=== PATIENT | male | born 2000 ===

== ENCOUNTER 2023-11-11 12:25 | Inpatient (IN) | payer BC, SELFPAY ==
--- NOTE | 2023-11-11 12:35 | ED_ITS ---
HPI - General Adult General Chief complaint: Behavioral Concerns Stated complaint: Section 12 Time Seen by Provider: 11/11/23 12:35 Source: patient and EMS Mode of arrival: EMS Limitations: no limitations History of Present Illness ED Provider: Stephanie Lees PA-C HPI narrative: Patient is a 22 year old assigned male at with no reported medical history presenting to the emergency department today with rodrigo. Patient refuses to answer questions. Appears to be answering to internal stimuli. Related Data Home Medications ?Medication ?Instructions ?Recorded ?Confirmed cetirizine 10 mg tablet 10 mg PO DAILY 11/11/23 11/11/23 chlorpromazine 100 mg tablet 100 mg PO BEDTIME 11/11/23 11/11/23 lithium carbonate 300 mg tablet mg PO 11/11/23 lorazepam 1 mg tablet 1 mg PO DAILY PRN anxiety 11/11/23 11/11/23 lurasidone 40 mg tablet 40 mg PO DAILY 11/11/23 11/11/23 olanzapine 5 mg tablet 5 mg PO BEDTIME 11/11/23 11/11/23 Allergies Allergy/AdvReac Type Severity Reaction Status Date / Time No Known Allergies Allergy Verified 11/11/23 12:50 Review of Systems 2 Review of Systems: Yes Other (patient refused to answer questions) Psychiatric: Psychiatric: Reports auditory hallucinations PMFSH Past Medical History Attestation statement: The following information was validated with the patient. Source: old records reviewed and nursing notes reviewed Social History Social History Advance Directives: No Advance Directives Information Provided: No Do you have a plan to hurt others: No Plan Physical Exam ED Vital Signs: BMI result Body Mass Index 33.9 Const General: cooperative, no acute distress, alert and awake Nutritional Appearance: well nourished Orientation/consciousness: patient oriented x3 Limitations: no limitations HENMT Head: Yes normal to inspection and Yes atraumatic Ears: hearing grossly normal bilaterally and external ears normal General nose exam: Normal external nose present, no nasal discharge noted and no epistaxis Face and sinus: Yes normal facial exam, No abrasion and No laceration Mouth: Normal oral and palatal mucosa present, no drooling and no muffled voice Eyes General: appearance normal, both eyes and all related structures Periorbital: periorbital findings normal Eyelids: Yes eyelids normal Conjunctivae: conjunctivae normal Pupils: Equal, round and reactive pupils present EOM: EOMs intact bilaterally Neck Neck: Yes normal visual inspection, Yes full ROM and Yes no lymphadenopathy Chest Chest palpation & inspection: normal inspection of the chest Resp Effort & Inspection: normal respiratory effort and able to speak in complete sentences GI Inspection: Yes normal to inspection Neuro General: patient oriented x3 and moves all extremities Cranial nerves: Yes Equal, round and reactive pupils present Cognition (Neuro): normal cognition Extrem General: Yes normal to inspection, Yes full ROM and Yes capillary refill normal Psych Speech and movement: Pressured speech present Affect: Labile affect present Attitude: Guarded attititude/behavior present Thought process: Flight of ideas present Thought content: delusions Medical Decision Making Medical Decision Making MDM Narrative: Patient is a 22 year old assigned male at with no reported medical history presenting to the emergency department today with acute rodrigo. Patient's physical exam was as noted in the physical exam portion of this note. Patient's blood work was unremarkable. Patient was evaluated by the CARE team who recommended in patient level of psychiatric care. I explained my physical exam findings as well as all test results to the patient. I answered all questions asked by the patient. Patient remains in physician observation pending inpatient psychiatric admission or transfer to a psychiatric facility. Differential Diagnosis Differential Diagnoses: The differential diagnosis associated with the presentation includes Rodrigo Delusions Auditory hallucinations Admission/Observation Consideration of admission/observation: Escalation of care including admission/observation considered Patient to be admitted for psychiatric care Consult Healthcare Provider Management of the patient was discussed with: Behavioral Health Provider (spoke to the CARE team as noted in the MDM Rationale portion of this note.) Lab Data [facility] Lab Attestation statement: I reviewed the patient's lab results. My interpretation of these results are in the MDM Rationale portion of this note. 11/11/23 12:55 11/11/23 12:55 Labs: Lab Results 11/11/23 11/11/23 Range/Units 12:55 15:08 WBC 4.9 (4.8-10.8) X10*3/uL RBC 4.94 (4.60-5.80) X10*6/uL Hgb 15.4 (14.0-18.0) g/dl Hct 43.8 (42.0-52.0) % MCV 88.7 (80.0-98.0) fL MCH 31.2 (27.0-33.0) pg MCHC 35.2 (31.0-36.0) g/dl RDW 13.2 (11.0-16.0) % Plt Count 259 (160-400) X10*3/uL MPV 9.2 L (9.4-12.4) fL Immature Gran % (Auto) 0.2 (0.0-0.4) % Neut % (Auto) 65.3 (45-73) % Lymph % (Auto) 22.2 (20-40) % [place] % (Auto) 10.1 (2-11) % Eos % (Auto) 1.2 (0-4) % Baso % (Auto) 1.0 (0-2) % Lymph # (Auto) 1.1 L (1.2-4.9) X10*3/uL [place] # (Auto) 0.5 (0.1-1.2) X10*3/uL Eos # (Auto) 0.1 (0.0-0.4) X10*3/uL Baso # (Auto) 0.1 (0.0-0.2) X10*3/uL Abs Immat Gran (auto) 0.01 (0.00-0.03) X10*3/uL Absolute Neuts (auto) 3.2 (2.0-8.3) x10*3/uL Absolute Nucleated RBC 0.000 (0.0-0.012) X10*3/uL Nucleated RBC % (auto) 0.0 (0.0-0.2) /100WBC Sodium 141 (135-145) mmol/L Potassium 3.8 (3.3-5.1) mmol/L Chloride 110 H (96-108) mmol/L Carbon Dioxide 21 L (22-29) mmol/L Anion Gap 14 (12-20) BUN 11 (9-16) mg/dL Creatinine 1.02 (0.5-1.4) mg/dL Estim Creat Clear Calc 150.1 Estimated GFR > 60 Random Glucose 109 (60-115) mg/dL Calcium 10.0 (8.4-10.2) mg/dL Total Bilirubin 0.6 (0.0-1.0) mg/dL AST 30 (5-37) U/L ALT 72 H (0-40) U/L Alkaline Phosphatase 86 (39-117) U/L Total Protein 7.6 (6.5-8.0) g/dL Albumin 4.6 (3.5-5.0) g/dL Urine Color Yellow Urine Appearance Clear Urine pH 6.0 (5.0-9.0) Ur Specific [place] >= 1.030 H (1.005-1.025) Urine Protein 30 (1+) H (Neg-Trace) mg/dL Urine Glucose (UA) Negative (Negative) mg/dL Urine Ketones Trace (Negative) mg/dL Urine Blood Negative (Negative) Urine Nitrite Negative (Negative) Ur Leukocyte Esterase Trace H (Negative) Urine RBC 0-2 (0-2) /HPF Urine WBC 0-5 (0-5) /HPF Ur Squamous Epith Cells 0-2 (0-2) /HPF Urine Bacteria None Seen (None Seen) Hyaline Casts 0-2 (0-2) /LPF Salicylates < 5.0 L (15-30) mg/dL Acetaminophen < 3 (<30) mcg/mL Ethyl Alcohol < 10 mg/dL COVID-19 (TATI) Negative (Negative) COVID-19 Clin Com See Note Independent Historian Clinical information obtained from an independent historian. History obtained from or confirmed by: EMS (EMS provided additional history and confirmed the history provided by the patient.) Critical Care Time Critical Care Time Critical Care Time: Yes Total Critical Care Time: 36 Attestation: I spent 36 minutes of Critical Care Time with this patient. This does not include time spent on separately reported billable procedures. Discharge Plan Discharge Clinical Impression: Auditory hallucination Patient Disposition: Still a Patient Prescriptions: No Action cetirizine 10 mg tablet 10 mg PO DAILY chlorpromazine 100 mg tablet 100 mg PO BEDTIME olanzapine 5 mg tablet 5 mg PO BEDTIME lorazepam 1 mg tablet 1 mg PO DAILY PRN (Reason: anxiety) lithium carbonate 300 mg tablet PO lurasidone 40 mg tablet 40 mg PO DAILY Print Language: Anguillan
[2023-11-11 12:46] VITALS: BMI 33.9
[2023-11-11 13:01] LABS: MANUAL DIFF FLAG NO
--- NOTE | 2023-11-11 13:03 | MHC.CARE ---
[facility] calls with expect for patient and the following information is given: [facility] reports that patient's father brought him to the office. Prior to going to the [facility] office, father drove patient to [facility] in hopes to get patient readmitted. Patient discharged from [facility] 11/09/23. He is described as presenting for crisis evaluation due to verbal and physical aggression and psychotic breaks. Upon arrival to [facility] office, patient did not speak to anyone and stormed out. [facility] states he has a hx of aggression but they are not able to articulate what his aggressive hx looks like/ presents as other than that he is a large [place]. They report that he has a hx of being dx with bipolar d/o and substance induced bipolar. Historically he is medication non compliant. Father thinks he is taking medication currently however. Additionally, patient has been living in a hotel in [place] with his father since d/c from [facility], as he is considered not safe to be home with his mother and younger brother. Family home/ mother and brother are in [place]. Father is reported to be a surgeon working in [employer]/ the [place] and not home often. [facility] reports that a DMH application was started at [facility]. Additional admissions include [facility] Moisejuan danielderek 10/01-10/05. Upon return to the area post [facility] admission he was soon sent to a local ED for crisis assessment and waited in the ED for placement from 10/22-10/25. He was then admitted to [facility] from 10/25-11/08. [facility] is working on the assessment, their disposition/ recommendation is inpatient LOC. They report that patient did not verbally engage at all and the bulk of the information came from patient's father and his discharge paperwork they obtained from [facility].
[2023-11-11 13:05] LABS: Basophils Absolute Auto 0.1 X10*3/uL (0.0-0.2); Eosinophils Absolute Auto 0.1 X10*3/uL (0.0-0.4); Eosinophils Percent Auto 1.2 % (0-4); Hematocrit 43.8 % (42.0-52.0); Hemoglobin 15.4 g/dl (14.0-18.0); Imm Gran Abs Auto 0.01 X10*3/uL (0.00-0.03); Imm Gran Pct Auto 0.2 % (0.0-0.4); Lymphocytes Absolute Auto 1.1 X10*3/uL (1.2-4.9); Lymphocytes Percent Auto 22.2 % (20-40); Mean Corpuscular HGB Conc 35.2 g/dl (31.0-36.0); Mean Corpuscular Hemoglobin 31.2 pg (27.0-33.0); Mean Corpuscular Volume 88.7 fL (80.0-98.0); Mean Platelet Volume 9.2 fL (9.4-12.4); Monocytes Absolute Auto 0.5 X10*3/uL (0.1-1.2); Monocytes Percent Auto 10.1 % (2-11); Neutrophils Absolute Auto 3.2 x10*3/uL (2.0-8.3); Neutrophils Percent Auto 65.3 % (45-73); Platelet Count 259 X10*3/uL (160-400); Red Blood Count 4.94 X10*6/uL (4.60-5.80); Red Cell Distribution Width 13.2 % (11.0-16.0); White Blood Count 4.9 X10*3/uL (4.8-10.8)
[2023-11-11 13:26] LABS: COVID-19 Test Negative (Negative); IDNOW Serial# 08D9AD1C
[2023-11-11 13:28] LABS: Acetaminophen LAB < 3 mcg/mL (<30); Salicylate < 5.0 mg/dL (15-30)
[2023-11-11 13:33] LABS: Alanine Aminotransferase 72 U/L (0-40); Albumin Level 4.6 g/dL (3.5-5.0); Alkaline Phosphatase 86 U/L (39-117); Anion Gap 14 (12-20); Aspartate Amino Transferase 30 U/L (5-37); Bilirubin Total 0.6 mg/dL (0.0-1.0); Blood Urea Nitrogen 11 mg/dL (9-16); Carbon Dioxide 21 mmol/L (22-29); Chloride 110 mmol/L (96-108); Creatinine Clr Calc Pharmacy 150.1; Estimated Glomerular Filt Rate > 60; Ethanol < 10 mg/dL; Glucose Random 109 mg/dL (60-115); Potassium 3.8 mmol/L (3.3-5.1); Sodium 141 mmol/L (135-145); Total Protein 7.6 g/dL (6.5-8.0)
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
[2023-11-11 15:18] LABS: Appearance Urine Clear; Glucose Urine UA Negative (Negative); Leukocyte Esterase Urine Trace (Negative); Nitrite Urine Negative (Negative); Specific Gravity - Urine >= 1.030 (1.005-1.025); UMIC TRIGGER UA YES; Urine Blood Negative (Negative); Urine Ketones Trace mg/dL (Negative); Urine Protein 30 (1+) mg/dL (Neg-Trace)
[2023-11-11 15:21] LABS: Color Urine Yellow
[2023-11-11 15:22] LABS: Bacteria Urine None Seen (None Seen); Hyaline Casts Urine 0-2 /LPF (0-2); RBC Urine 0-2 /HPF (0-2); Squamous Epithelial Cell Urine 0-2 /HPF (0-2); WBC Urine 0-5 /HPF (0-5)
[2023-11-11 15:35] LABS: Amphetamine Screen Urine Not Detected (Not Detect); Barbiturates, Urine Not Detected (Not Detect); Benzodiazepines Screen Urine Not Detected (Not Detect); Buprenorphine Scr Not Detected (Not Detect); Cannabinoid Screen Urine POSITIVE (Not Detect); Cocaine Screen Urine Not Detected (Not Detect); Fentanyl, urine Not Detected (Not Detect); Methadone Screen, Urine Not Detected (Not Detect); Opiate Screen Urine Not Detected (Not Detect); Oxycodone Screen Urine Not Detected (Not Detect); Phencyclidine Screen Urine Not Detected (Not Detect)
[2023-11-11 16:16] VITALS: BP 154/82; PULSE 95; RESP 20; TEMP 36.8; O2SAT 99
--- NOTE | 2023-11-11 16:41 | PHA.MEDREC ---
Addendum entered by Grecia Christianson RPh 11/11/23 16:45: Reviewed by [facility] Original Note: Pharmacy Consult ? Medication Reconciliation Pharmacy has Reviewed the medication reconciliation done by nursing.
[2023-11-11] MEDS: hydrOXYzine HCL 50 MG TABLET PO (17:39)
--- NOTE | 2023-11-11 18:54 | PC.NURSE ---
patient appears to remain resting moderately intrusive, waiting immediately outside the nurses station redirected but consistently seeming interested in staff activities, hanging around with sunglasses on and giggling.
[2023-11-11 20:05] VITALS: BMI 36.7
[2023-11-11 20:32] VITALS: RESP 15
[2023-11-11] MEDS: Lithium Carbonate 300 MG CAPSULE 900 MG PO (20:46)
[2023-11-11] MEDS: chlorproMAZINE HCl 100 MG TABLET PO (20:46)
[2023-11-11] MEDS: hydrOXYzine HCL 25 MG TABLET PO (20:49)
[2023-11-12] MEDS: traZODone HCL 50 MG TABLET PO (00:22)
[2023-11-12] MEDS: Haloperidol Lactate 5 MG/ML VIAL 10 MG IM (01:14)
[2023-11-12] MEDS: hydrOXYzine HCL 25 MG TABLET PO ×2 (01:20→13:17)
--- NOTE | 2023-11-12 05:00 | PC.ADMIT ---
Giovani is a 22 years old male, who was admitted to from [facility]. He came up with CV status at 2004. Upon arrival to the unit he allowed the skin check, but he declined VS check and refused to participate in admission process. According to Crisis report he did not engage in crisis assessment at the [facility], where he presented with his father (Giovani Corrales.). Father disclosed that Giovani has exhibited verbal and physical aggression, psychotic episodes, and hallucinations over the past two days. Father reported that Giovani was discharged from [facility] on 11/09/23. His father also reported a significant hx of unstable Bipolar d/o and PTSD. Upon arrival to Giovani started exhibiting intrusiveness towards other patients and staff. He was also grandiose, and had multiple requests regarding food and his belongings. Also he signed a 3-day notice shortly after arriving to the unit. He took his night meds [place] and Thorazine 100 mg and fell asleep, but woke up shortly. He continued with intrusiveness and made several provoking statement towards other patients and staff. He banged at the med room door demanding Haldol IM. was notified and Haldol 10mg IM and Ativan 2 mg PO were ordered, but he only agreed to take Haldol IM and Hydroxazine 25mg. He fell asleep shortly, woke up twice, but very sedated and used the bathroom. Needed staff redirection. Will continue to monitor for safety.
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
[2023-11-12] MEDS: Loratadine 10 MG TABLET PO (09:22)
[2023-11-12] MEDS: Lithium Carbonate 300 MG CAPSULE 600 MG PO (09:22)
[2023-11-12] MEDS: HaloperidoL 5 MG TABLET 10 MG PO ×2 (13:16→20:44)
[2023-11-12] MEDS: LORazepam 1 MG TABLET 2 MG PO ×2 (13:41→20:44)
[2023-11-12] MEDS: diphenhydrAMINE HCL 25 MG CAPSULE 50 MG PO ×2 (13:44→20:44)
--- NOTE | 2023-11-12 13:55 | PC.NURSE ---
Pt is not a tobacco smoker.
[2023-11-12] MEDS: chlorproMAZINE HCl 25 MG TABLET 50 MG PO (18:02)
[2023-11-12 20:00] VITALS: BP 118/70; PULSE 84; RESP 20; TEMP 36.6; O2SAT 98
[2023-11-12] MEDS: Lithium Carbonate 300 MG CAPSULE 900 MG PO (20:15)
[2023-11-12] MEDS: chlorproMAZINE HCl 100 MG TABLET PO (20:16)
[2023-11-13] MEDS: hydrOXYzine HCL 25 MG TABLET PO (08:32)
[2023-11-13] MEDS: Loratadine 10 MG TABLET PO (08:32)
[2023-11-13] MEDS: chlorproMAZINE HCl 25 MG TABLET 50 MG PO ×2 (09:11→11:38)
[2023-11-13] MEDS: Lurasidone HCl 40 MG TABLET PO (10:04)
[2023-11-13] MEDS: LORazepam 1 MG TABLET 2 MG PO ×3 (11:07→21:38)
[2023-11-13] MEDS: HaloperidoL 5 MG TABLET 10 MG PO ×3 (11:07→21:38)
[2023-11-13] MEDS: diphenhydrAMINE HCL 25 MG CAPSULE 50 MG PO ×3 (11:07→21:38)
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
[2023-11-13] MEDS: traZODone HCL 50 MG TABLET PO (20:46)
[2023-11-13] MEDS: chlorproMAZINE HCl 100 MG TABLET PO (20:46)
[2023-11-13] MEDS: Lithium Carbonate ER 300 MG TABLET.ER 1500 MG PO (20:46)
[2023-11-14 08:00] VITALS: BP 140/85; PULSE 116; RESP 18; TEMP 36.6; O2SAT 100
[2023-11-14] MEDS: chlorproMAZINE HCl 25 MG TABLET 50 MG PO ×3 (08:22→18:42)
[2023-11-14] MEDS: Lurasidone HCl 40 MG TABLET PO (09:27)
[2023-11-14] MEDS: diphenhydrAMINE HCL 25 MG CAPSULE 50 MG PO ×2 (10:07→22:24)
[2023-11-14] MEDS: HaloperidoL 5 MG TABLET 10 MG PO (10:07)
[2023-11-14] MEDS: hydrOXYzine HCL 25 MG TABLET PO ×2 (12:17→21:33)
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
[2023-11-14] MEDS: Nicotine Polacrilex 2 MG GUM 4 MG BUCCAL (14:43)
[2023-11-14] MEDS: Lithium Carbonate ER 300 MG TABLET.ER 1500 MG PO (20:57)
[2023-11-14] MEDS: chlorproMAZINE HCl 100 MG TABLET PO (20:57)
[2023-11-14] MEDS: traZODone HCL 50 MG TABLET PO (22:24)
[2023-11-15] MEDS: chlorproMAZINE HCl 25 MG TABLET 50 MG PO ×3 (01:00→17:11)
[2023-11-15 08:00] VITALS: BP 127/58; PULSE 122; RESP 16; TEMP 36.7; O2SAT 96
[2023-11-15 09:12] VITALS: PULSE 92
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
[2023-11-15] MEDS: hydrOXYzine HCL 25 MG TABLET PO (11:45)
[2023-11-15] MEDS: LORazepam 1 MG TABLET 2 MG PO ×2 (13:27→18:05)
[2023-11-15] MEDS: HaloperidoL 5 MG TABLET 10 MG PO ×2 (13:28→18:05)
[2023-11-15] MEDS: diphenhydrAMINE HCL 25 MG CAPSULE 50 MG PO ×2 (13:28→18:05)
[2023-11-15] MEDS: Lurasidone HCl 40 MG TABLET PO (17:11)
--- NOTE | 2023-11-15 18:03 | PC.NURSE ---
Giovani rescinded his three day notice.
[2023-11-15] MEDS: chlorproMAZINE HCl 100 MG TABLET PO (22:32)
[2023-11-15] MEDS: Lithium Carbonate ER 300 MG TABLET.ER 1500 MG PO (22:32)
[2023-11-15 22:35] VITALS: BP 122/72; PULSE 97; TEMP 37.2
[2023-11-16] MEDS: Acetaminophen 325 MG TABLET 650 MG PO (06:55)
[2023-11-16] MEDS: chlorproMAZINE HCl 25 MG TABLET 50 MG PO ×3 (06:57→18:14)
[2023-11-16] MEDS: hydrOXYzine HCL 25 MG TABLET PO ×3 (06:58→18:14)
[2023-11-16 08:00] VITALS: BP 136/69; PULSE 128; RESP 18; TEMP 36.9; O2SAT 97
[2023-11-16] MEDS: HaloperidoL 5 MG TABLET 10 MG PO (09:42)
[2023-11-16] MEDS: diphenhydrAMINE HCL 25 MG CAPSULE 50 MG PO (09:42)
[2023-11-16] MEDS: LORazepam 1 MG TABLET 2 MG PO (09:42)
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
[2023-11-16] MEDS: Nicotine 14 MG PATCH.TD24 TRANSDERMA (13:02)
[2023-11-16] MEDS: LORazepam 1 MG TABLET PO (15:47)
[2023-11-16] MEDS: ARIPiprazole 10 MG TABLET PO (15:47)
[2023-11-16] MEDS: HaloperidoL 5 MG TABLET PO ×2 (15:50→20:51)
[2023-11-16] MEDS: Lithium Carbonate ER 300 MG TABLET.ER 1500 MG PO (20:50)
[2023-11-16] MEDS: chlorproMAZINE HCl 100 MG TABLET PO (20:50)
[2023-11-17 08:16] VITALS: BP 139/93; PULSE 108; RESP 16; TEMP 36.8; O2SAT 96
--- NOTE | 2023-11-17 11:22 | PC.NURSE ---
pt refused VS reassessment for BP 139/93
[2023-11-17] MEDS: Nicotine 14 MG PATCH.TD24 TRANSDERMA (13:16)
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
[2023-11-17] MEDS: Nicotine Polacrilex 2 MG GUM 4 MG BUCCAL (18:49)
[2023-11-17 20:00] VITALS: BP 136/76; PULSE 127; RESP 16; TEMP 36.9; O2SAT 99
[2023-11-17] MEDS: Lithium Carbonate ER 300 MG TABLET.ER 1500 MG PO (20:07)
[2023-11-17] MEDS: chlorproMAZINE HCl 100 MG TABLET PO (20:07)
[2023-11-17] MEDS: ARIPiprazole 10 MG TABLET PO (20:07)
[2023-11-18 07:00] VITALS: BMI 38.5
[2023-11-18 08:06] VITALS: BP 122/68; PULSE 103; RESP 16; TEMP 36.8; O2SAT 97
[2023-11-18 08:52] LABS: Lithium 0.93 mmol/L (0.60-1.20)
[2023-11-18 09:05] LABS: Anion Gap 13 (12-20); Blood Urea Nitrogen 12 mg/dL (9-16); Carbon Dioxide 25 mmol/L (22-29); Chloride 106 mmol/L (96-108); Creatinine Clr Calc Pharmacy 171.4; Estimated Glomerular Filt Rate > 60; Glucose Random 87 mg/dL (60-115); Potassium 4.4 mmol/L (3.3-5.1); Sodium 140 mmol/L (135-145)
[2023-11-18 09:23] LABS: TSH reflex Free T4 0.59 uIU/mL (0.32-4.0)
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
[2023-11-18] MEDS: Nicotine Polacrilex 2 MG GUM 4 MG BUCCAL (10:09)
[2023-11-18 20:00] VITALS: BP 163/90; PULSE 90; RESP 17; TEMP 36.9; O2SAT 98
[2023-11-18] MEDS: Lithium Carbonate ER 300 MG TABLET.ER 1500 MG PO (21:05)
[2023-11-18] MEDS: chlorproMAZINE HCl 100 MG TABLET PO (21:05)
[2023-11-18] MEDS: ARIPiprazole 10 MG TABLET PO (21:05)
[2023-11-19 08:00] VITALS: BP 157/90; PULSE 97; RESP 16; TEMP 37.4; O2SAT 98
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
[2023-11-19 19:51] VITALS: BP 156/76; PULSE 106; RESP 15; TEMP 36.9; O2SAT 98
[2023-11-19] MEDS: chlorproMAZINE HCl 100 MG TABLET PO (20:09)
[2023-11-19] MEDS: ARIPiprazole 10 MG TABLET PO (20:09)
[2023-11-19] MEDS: Lithium Carbonate ER 300 MG TABLET.ER 1500 MG PO (20:09)
[2023-11-20 08:00] VITALS: BP 134/79; PULSE 94; RESP 19; TEMP 37.1; O2SAT 98
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
[2023-11-20 20:00] VITALS: BP 146/97; PULSE 98; RESP 16; TEMP 36.9; O2SAT 97
[2023-11-20] MEDS: chlorproMAZINE HCl 100 MG TABLET PO (20:29)
[2023-11-20] MEDS: Lithium Carbonate ER 300 MG TABLET.ER 1500 MG PO (20:29)
[2023-11-20] MEDS: ARIPiprazole 10 MG TABLET PO (20:29)
[2023-11-21 08:00] VITALS: BP 140/87; PULSE 91; RESP 16; TEMP 36.4; O2SAT 97
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
[2023-11-21] MEDS: Nicotine 14 MG PATCH.TD24 TRANSDERMA (15:48)
[2023-11-21] MEDS: hydrOXYzine HCL 25 MG TABLET PO (18:18)
[2023-11-21 19:55] VITALS: BP 145/80; PULSE 104; RESP 15; TEMP 36.4; O2SAT 99
[2023-11-21] MEDS: ARIPiprazole 10 MG TABLET PO (20:06)
[2023-11-21] MEDS: chlorproMAZINE HCl 100 MG TABLET PO (20:06)
[2023-11-21] MEDS: Lithium Carbonate ER 300 MG TABLET.ER 1500 MG PO (20:06)
[2023-11-22 08:14] VITALS: BP 148/84; PULSE 89; RESP 18; TEMP 36.9; O2SAT 99
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
[2023-11-22] MEDS: Nicotine 14 MG PATCH.TD24 TRANSDERMA (11:33)
[2023-11-22] MEDS: HaloperidoL 5 MG TABLET PO (18:33)
[2023-11-22 20:00] VITALS: BP 169/114; PULSE 102; RESP 18; TEMP 36.7; O2SAT 100
[2023-11-22] MEDS: Lithium Carbonate ER 300 MG TABLET.ER 1500 MG PO (20:11)
[2023-11-22] MEDS: chlorproMAZINE HCl 100 MG TABLET PO (20:11)
[2023-11-22] MEDS: ARIPiprazole 10 MG TABLET PO (20:12)
[2023-11-23 08:00] VITALS: BP 137/82; PULSE 82; RESP 18; TEMP 37; O2SAT 100
[2023-11-23] MEDS: Nicotine 14 MG PATCH.TD24 TRANSDERMA (09:15)
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
[2023-11-23] MEDS: HaloperidoL 5 MG TABLET PO (17:53)
[2023-11-23 20:00] VITALS: BP 133/82; PULSE 90; TEMP 36.8; O2SAT 98
[2023-11-23] MEDS: Lithium Carbonate ER 300 MG TABLET.ER 1500 MG PO (20:03)
[2023-11-23] MEDS: traZODone HCL 50 MG TABLET PO (20:03)
[2023-11-23] MEDS: chlorproMAZINE HCl 100 MG TABLET PO (20:03)
[2023-11-23] MEDS: ARIPiprazole 10 MG TABLET PO (20:03)
[2023-11-24 08:45] VITALS: BP 144/86; PULSE 83; RESP 16; TEMP 36.9; O2SAT 100
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
== END 2023-11-24 11:31 | disposition home or self-care (01) | DRG 753 ==
LOC: HO.ED 15:29 → HO.PM5 19:01
PROVIDERS: Physician Assistant Medical; Admitting Provider Psychiatry & Neurology Psychiatry; Emergency Provider Emergency Medicine; Visit Provider Psychiatry & Neurology Psychiatry
DX: F31.2 Bipolar disorder, current episode manic severe with psychotic features (principal); F17.210 Nicotine dependence, cigarettes, uncomplicated; F43.10 Post-traumatic stress disorder, unspecified; Z20.822 Contact with and (suspected) exposure to COVID-19; Z71.6 Tobacco abuse counseling; Z79.899 Other long term (current) drug therapy
CPT/HCPCS: 36415; 80048; 80053; 80143; 80178; 80179; 80307; 81001; 84443; 85025; 87635; 99285; J1630

== ENCOUNTER → 2023-11-11 18:40 | Outpatient (BNV) | payer BC, SELFPAY | PROVIDERS: Admitting Provider Psychiatry & Neurology Psychiatry; Emergency Provider Emergency Medicine; Visit Provider Psychiatry & Neurology Psychiatry | DX: F31.2 Bipolar disorder, current episode manic severe with psychotic features (principal); F43.11 Post-traumatic stress disorder, acute | CPT/HCPCS: 90792; 99231; 99232; 99239 ==

== ENCOUNTER 2023-11-28 17:49 | Inpatient (IN) | payer BC, SELFPAY ==
[2023-11-28 18:07] VITALS: RESP 16; BMI 28.2
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
[2023-11-28 18:14] VITALS: BP 137/87; PULSE 95; RESP 20; TEMP 37.1; O2SAT 98
[2023-11-28 18:36] LABS: MANUAL DIFF FLAG NO
[2023-11-28 18:37] LABS: Basophils Percent Auto 0.7 % (0-2); Eosinophils Absolute Auto 0.4 X10*3/uL (0.0-0.4); Eosinophils Percent Auto 5.8 % (0-4); Hematocrit 44.7 % (42.0-52.0); Imm Gran Abs Auto 0.01 X10*3/uL (0.00-0.03); Imm Gran Pct Auto 0.2 % (0.0-0.4); Lymphocytes Percent Auto 33.2 % (20-40); Mean Corpuscular HGB Conc 33.6 g/dl (31.0-36.0); Mean Corpuscular Hemoglobin 30.4 pg (27.0-33.0); Mean Corpuscular Volume 90.5 fL (80.0-98.0); Mean Platelet Volume 8.9 fL (9.4-12.4); Monocytes Absolute Auto 0.5 X10*3/uL (0.1-1.2); Monocytes Percent Auto 7.8 % (2-11); Neutrophils Absolute Auto 3.2 x10*3/uL (2.0-8.3); Neutrophils Percent Auto 52.3 % (45-73); Platelet Count 284 X10*3/uL (160-400); Red Blood Count 4.94 X10*6/uL (4.60-5.80); Red Cell Distribution Width 13.4 % (11.0-16.0)
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
[2023-11-28 18:54] LABS: Alanine Aminotransferase 61 U/L (0-40); Albumin Level 4.4 g/dL (3.5-5.0); Alkaline Phosphatase 83 U/L (39-117); Anion Gap 13 (12-20); Aspartate Amino Transferase 20 U/L (5-37); Bilirubin Total 0.4 mg/dL (0.0-1.0); Blood Urea Nitrogen 11 mg/dL (9-16); Calcium 9.7 mg/dL (8.4-10.2); Carbon Dioxide 24 mmol/L (22-29); Chloride 107 mmol/L (96-108); Creatinine Clr Calc Pharmacy 131.6; Estimated Glomerular Filt Rate > 60; Ethanol < 10 mg/dL; Glucose Random 106 mg/dL (60-115); Potassium 3.7 mmol/L (3.3-5.1); Sodium 140 mmol/L (135-145); Total Protein 7.3 g/dL (6.5-8.0)
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
[2023-11-28 19:03] LABS: Appearance Urine Clear; Color Urine Yellow; Glucose Urine UA Negative (Negative); Leukocyte Esterase Urine Trace (Negative); Nitrite Urine Negative (Negative); UMIC TRIGGER UACC YES; Urine Blood Negative (Negative); Urine Ketones Trace mg/dL (Negative); Urine Protein Negative (Neg-Trace)
[2023-11-28 19:05] LABS: Bacteria Urine None Seen (None Seen); Hyaline Casts Urine 0-2 /LPF (0-2); RBC Urine 0-2 /HPF (0-2); Squamous Epithelial Cell Urine 0-2 /HPF (0-2); WBC Urine 0-5 /HPF (0-5)
[2023-11-28 19:13] LABS: Amphetamine Screen Urine Not Detected (Not Detect); Barbiturates, Urine Not Detected (Not Detect); Benzodiazepines Screen Urine Not Detected (Not Detect); Buprenorphine Scr Not Detected (Not Detect); Cannabinoid Screen Urine Not Detected (Not Detect); Cocaine Screen Urine Not Detected (Not Detect); Fentanyl, urine Not Detected (Not Detect); Methadone Screen, Urine Not Detected (Not Detect); Opiate Screen Urine Not Detected (Not Detect); Oxycodone Screen Urine Not Detected (Not Detect); Phencyclidine Screen Urine Not Detected (Not Detect)
[2023-11-28] MEDS: HaloperidoL 5 MG TABLET 10 MG PO (19:23)
[2023-11-28] MEDS: hydrOXYzine HCL 50 MG TABLET PO (19:23)
--- NOTE | 2023-11-28 19:25 | PC.NURSE ---
patient ambulating ad shavon in common area presently initially somewhat antagonistic toward staff, demanding, staring...soon after t/w's arrival provide client some medications (10 haldol and hydroxyzine) in hopes to help the client relax a bit. continue to monitor for safety.
[2023-11-28 19:46] VITALS: BP 147/91; PULSE 93; RESP 18; O2SAT 98
[2023-11-28] MEDS: Lithium Carbonate 300 MG CAPSULE 1200 MG PO (21:33)
[2023-11-28] MEDS: Lithium Carbonate ER 300 MG TABLET.ER PO (21:34)
[2023-11-28] MEDS: chlorproMAZINE HCl 25 MG TABLET PO (21:34)
[2023-11-28] MEDS: ARIPiprazole 10 MG TABLET PO (21:34)
[2023-11-28] MEDS: traZODone HCL 50 MG TABLET PO (21:40)
--- NOTE | 2023-11-28 21:49 | PC.NURSE ---
patient moderately intrusive repeatedly coming up to nurses station and asking for food very very often. at least client has eaten 4-5 sandwiches in last 3 hours. client was redirected about leaving his trash on nurses station rail , talking with food in his mouth, contstant demands.
--- NOTE | 2023-11-28 21:58 | PC.NURSE ---
patient comes up to nurses station asking for more medications. let the patient know he'd had most everything that was available and then told him in two hours he could have more haldol if he felt he needed it. patient purposely passed gas in front of nurses station and laughed, t/w redirected him.
--- NOTE | 2023-11-28 22:03 | PC.NURSE ---
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
[2023-11-29] MEDS: traZODone HCL 50 MG TABLET PO ×2 (00:03→20:34)
[2023-11-29] MEDS: HaloperidoL 5 MG TABLET PO ×3 (00:04→15:13)
[2023-11-29] MEDS: hydrOXYzine HCL 50 MG TABLET PO ×3 (02:07→20:34)
[2023-11-29] MEDS: chlorproMAZINE HCl 25 MG TABLET PO ×2 (02:08→15:13)
--- NOTE | 2023-11-29 04:53 | PC.NURSE ---
patient had come out of room asking for more medications, postured towards multiple staff saying he was a miriam god...t/w pursued medications but patient fell asleep before they could be prepared and administered.
--- NOTE | 2023-11-29 07:25 | PC.NURSE ---
Assumed care of patient at 0645. At this time the patient is eating breakfast in their room. No signs of distress observed.
--- NOTE | 2023-11-29 07:58 | MHC.CARE ---
Pt will be an inpatient psychiatric bedsearch.
--- NOTE | 2023-11-29 08:36 | ECG_ITS ---
Test Reason : CHECK FOR PROLONG QT Blood Pressure : / mmHG Vent. Rate : 074 BPM Atrial Rate : 074 BPM P-R Int : 152 ms QRS Dur : 086 ms QT Int : 392 ms P-R-T Axes : 003 084 045 degrees QTc Int : 435 ms Normal sinus rhythm Normal ECG No previous ECGs available Referred By: Generic ED Physician Electronically Signed By:CLARISA WHIPPLE
[2023-11-29 08:49] VITALS: BP 126/75; PULSE 92; RESP 16; TEMP 36.6; O2SAT 98
--- NOTE | 2023-11-29 09:01 | MHC.EDTECH ---
Patient refuse EKG ,RN aware.
[2023-11-29 14:55] LABS: Lithium 0.58 mmol/L (0.60-1.20)
[2023-11-29 14:56] VITALS: BP 134/78; PULSE 76; RESP 16; TEMP 36.9; O2SAT 98
[2023-11-29] MEDS: Nicotine 21 MG PATCH.TD24 TRANSDERMA (15:37)
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
[2023-11-29 19:48] VITALS: BP 135/61; PULSE 112; RESP 16; TEMP 36.9; O2SAT 98
[2023-11-29] MEDS: Lithium Carbonate ER 300 MG TABLET.ER PO (20:32)
[2023-11-29] MEDS: ARIPiprazole 10 MG TABLET PO (20:32)
[2023-11-29] MEDS: Lithium Carbonate ER 300 MG TABLET.ER 1200 MG PO (20:32)
[2023-11-29] MEDS: Flu Vacc TS2024-25(6mos up)/PF 0.5 ML SYRINGE IM (20:35)
[2023-11-30] MEDS: chlorproMAZINE HCl 25 MG TABLET PO ×3 (01:32→20:42)
[2023-11-30] MEDS: HaloperidoL 5 MG TABLET PO ×2 (11:15→17:10)
[2023-11-30] MEDS: ARIPiprazole ER 400 MG SUSER.SYR IM (12:25)
[2023-11-30] MEDS: Nicotine 21 MG PATCH.TD24 TRANSDERMA (13:31)
[2023-11-30] MEDS: hydrOXYzine HCL 50 MG TABLET PO ×2 (13:32→20:43)
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
[2023-11-30] MEDS: ARIPiprazole 10 MG TABLET PO (20:40)
[2023-11-30] MEDS: Lithium Carbonate ER 300 MG TABLET.ER 1200 MG PO (20:40)
[2023-11-30] MEDS: Lithium Carbonate ER 300 MG TABLET.ER PO (20:41)
[2023-11-30] MEDS: traZODone HCL 50 MG TABLET PO (20:43)
[2023-12-01] MEDS: traZODone HCL 50 MG TABLET PO ×2 (01:42→21:05)
[2023-12-01 08:06] VITALS: BP 139/69; PULSE 100; TEMP 36.4; O2SAT 99
[2023-12-01] MEDS: chlorproMAZINE HCl 25 MG TABLET PO ×2 (09:20→21:05)
[2023-12-01] MEDS: Loratadine 10 MG TABLET PO (09:20)
[2023-12-01] MEDS: Nicotine 21 MG PATCH.TD24 TRANSDERMA (09:31)
[2023-12-01] MEDS: HaloperidoL 5 MG TABLET PO ×2 (12:46→21:05)
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
[2023-12-01 20:00] VITALS: RESP 16
[2023-12-01] MEDS: ARIPiprazole 10 MG TABLET PO (21:04)
[2023-12-01] MEDS: Lithium Carbonate ER 300 MG TABLET.ER 1200 MG PO (21:04)
[2023-12-01] MEDS: Lithium Carbonate ER 300 MG TABLET.ER PO (21:05)
[2023-12-02 07:53] VITALS: BP 133/81; PULSE 88; RESP 20; TEMP 36.9; O2SAT 97
[2023-12-02] MEDS: Loratadine 10 MG TABLET PO (11:15)
[2023-12-02] MEDS: Nicotine 21 MG PATCH.TD24 TRANSDERMA (11:15)
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
[2023-12-02] MEDS: HaloperidoL 5 MG TABLET PO (17:14)
[2023-12-02 21:00] VITALS: BP 134/78; PULSE 100; RESP 16; TEMP 36.9; O2SAT 97
[2023-12-02] MEDS: Lithium Carbonate ER 300 MG TABLET.ER 1200 MG PO (21:26)
[2023-12-02] MEDS: chlorproMAZINE HCl 25 MG TABLET PO (21:26)
[2023-12-02] MEDS: Lithium Carbonate ER 300 MG TABLET.ER PO (21:27)
[2023-12-02] MEDS: traZODone HCL 50 MG TABLET PO (21:27)
[2023-12-02] MEDS: ARIPiprazole 10 MG TABLET PO (21:27)
[2023-12-03 05:46] VITALS: BMI 36.3
[2023-12-03 08:00] VITALS: BP 155/89; PULSE 91; RESP 18; TEMP 36.9; O2SAT 99
[2023-12-03] MEDS: chlorproMAZINE HCl 25 MG TABLET PO (13:21)
[2023-12-03] MEDS: Nicotine 21 MG PATCH.TD24 TRANSDERMA (13:21)
[2023-12-03] MEDS: Loratadine 10 MG TABLET PO (13:22)
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
[2023-12-03 20:00] VITALS: BP 143/82; PULSE 97; RESP 18; TEMP 36.7; O2SAT 100
[2023-12-03] MEDS: HaloperidoL 5 MG TABLET PO (20:11)
[2023-12-03] MEDS: traZODone HCL 50 MG TABLET PO (20:11)
[2023-12-03] MEDS: ARIPiprazole 10 MG TABLET PO (20:11)
[2023-12-03] MEDS: chlorproMAZINE HCl 25 MG TABLET 50 MG PO (20:11)
[2023-12-03] MEDS: Lithium Carbonate ER 300 MG TABLET.ER 1200 MG PO (20:11)
[2023-12-03] MEDS: Lithium Carbonate ER 300 MG TABLET.ER PO (20:12)
[2023-12-04 08:35] LABS: Lithium 1.06 mmol/L (0.60-1.20)
[2023-12-04 08:47] LABS: Blood Urea Nitrogen 12 mg/dL (9-16); Creatinine Clr Calc Pharmacy 173.1; Estimated Glomerular Filt Rate > 60
[2023-12-04 09:05] LABS: TSH reflex Free T4 1.21 uIU/mL (0.32-4.0)
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
[2023-12-04] MEDS: Lithium Carbonate ER 300 MG TABLET.ER 1200 MG PO (20:39)
[2023-12-04] MEDS: Lithium Carbonate ER 300 MG TABLET.ER PO (20:40)
[2023-12-04] MEDS: ARIPiprazole 10 MG TABLET PO (20:40)
[2023-12-04] MEDS: chlorproMAZINE HCl 25 MG TABLET 50 MG PO (20:40)
[2023-12-05 08:00] VITALS: BP 133/81; PULSE 79; RESP 16; TEMP 36.9; O2SAT 98
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
[2023-12-05] MEDS: Nicotine 21 MG PATCH.TD24 TRANSDERMA (14:24)
[2023-12-05 20:00] VITALS: BP 143/93; PULSE 108; RESP 20; TEMP 37.1; O2SAT 97
[2023-12-05] MEDS: ARIPiprazole 10 MG TABLET PO (20:56)
[2023-12-05] MEDS: HaloperidoL 5 MG TABLET PO (20:56)
[2023-12-05] MEDS: traZODone HCL 50 MG TABLET PO (20:56)
[2023-12-05] MEDS: chlorproMAZINE HCl 25 MG TABLET 50 MG PO (20:56)
[2023-12-05] MEDS: hydrOXYzine HCL 50 MG TABLET PO (20:56)
[2023-12-05] MEDS: Lithium Carbonate ER 300 MG TABLET.ER PO (20:56)
[2023-12-05] MEDS: Lithium Carbonate ER 300 MG TABLET.ER 1200 MG PO (20:56)
[2023-12-06 08:00] VITALS: BP 136/91; PULSE 88; O2SAT 99
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
[2023-12-06] MEDS: Loratadine 10 MG TABLET PO (08:46)
[2023-12-06] MEDS: Nicotine 21 MG PATCH.TD24 TRANSDERMA (11:34)
[2023-12-06 20:00] VITALS: BP 153/97; PULSE 112; TEMP 36.5; O2SAT 98
[2023-12-06] MEDS: Lithium Carbonate ER 300 MG TABLET.ER PO (21:59)
[2023-12-06] MEDS: traZODone HCL 50 MG TABLET PO (21:59)
[2023-12-06] MEDS: chlorproMAZINE HCl 25 MG TABLET 50 MG PO (21:59)
[2023-12-06] MEDS: Lithium Carbonate ER 300 MG TABLET.ER 1200 MG PO (22:00)
[2023-12-06] MEDS: ARIPiprazole 10 MG TABLET PO (22:00)
[2023-12-07 08:00] VITALS: BP 129/67; PULSE 85; TEMP 36.9; O2SAT 99
[2023-12-07] MEDS: Nicotine 21 MG PATCH.TD24 TRANSDERMA (10:29)
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
[2023-12-07 20:00] VITALS: BP 150/93; PULSE 100; RESP 16; TEMP 36.9; O2SAT 98
[2023-12-07] MEDS: Lithium Carbonate ER 300 MG TABLET.ER PO (21:49)
[2023-12-07] MEDS: Lithium Carbonate ER 300 MG TABLET.ER 1200 MG PO (21:49)
[2023-12-07] MEDS: traZODone HCL 50 MG TABLET PO (21:51)
[2023-12-07] MEDS: chlorproMAZINE HCl 25 MG TABLET 50 MG PO (21:51)
[2023-12-08 08:00] VITALS: BP 135/85; PULSE 91; RESP 16; TEMP 36.5; O2SAT 100
[2023-12-08] MEDS: Loratadine 10 MG TABLET PO (08:59)
[2023-12-08] MEDS: HaloperidoL 5 MG TABLET PO ×2 (08:59→20:15)
[2023-12-08] MEDS: chlorproMAZINE HCl 25 MG TABLET PO (11:22)
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
[2023-12-08 20:00] VITALS: BP 140/86; PULSE 86; RESP 16; TEMP 36.9; O2SAT 98
[2023-12-08] MEDS: Lithium Carbonate ER 300 MG TABLET.ER PO (20:15)
[2023-12-08] MEDS: Lithium Carbonate ER 300 MG TABLET.ER 1200 MG PO (20:15)
[2023-12-08] MEDS: chlorproMAZINE HCl 25 MG TABLET 50 MG PO (20:15)
[2023-12-08] MEDS: traZODone HCL 50 MG TABLET PO (20:15)
[2023-12-09 07:00] VITALS: BMI 36.3
[2023-12-09 08:00] VITALS: BP 131/84; PULSE 99; TEMP 37.1; O2SAT 98
[2023-12-09] MEDS: Nicotine 21 MG PATCH.TD24 TRANSDERMA (09:08)
[2023-12-09] MEDS: HaloperidoL 5 MG TABLET PO ×2 (09:08→20:56)
[2023-12-09] MEDS: Loratadine 10 MG TABLET PO (09:08)
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
[2023-12-09] MEDS: chlorproMAZINE HCl 25 MG TABLET PO (13:26)
[2023-12-09 20:00] VITALS: BP 141/8; PULSE 100; RESP 16; TEMP 36.4; O2SAT 99
[2023-12-09] MEDS: chlorproMAZINE HCl 25 MG TABLET 50 MG PO (20:56)
[2023-12-09] MEDS: Lithium Carbonate ER 300 MG TABLET.ER 1200 MG PO (20:56)
[2023-12-09] MEDS: Lithium Carbonate ER 300 MG TABLET.ER PO (20:56)
[2023-12-09] MEDS: traZODone HCL 50 MG TABLET PO (20:56)
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
[2023-12-10] MEDS: HaloperidoL 5 MG TABLET PO (07:54)
== END 2023-12-10 08:00 | disposition home or self-care (01) | DRG 750 ==
LOC: HO.ED 11-29 08:01 → HO.PM5 11-29 12:42
PROVIDERS: Emergency Medicine; Admitting Provider Psychiatry & Neurology Psychiatry; Emergency Provider Emergency Medicine Emergency Medical Services; Visit Provider Psychiatry & Neurology Psychiatry
DX: F25.0 Schizoaffective disorder, bipolar type (principal); F17.210 Nicotine dependence, cigarettes, uncomplicated; F43.10 Post-traumatic stress disorder, unspecified; Z59.02 Unsheltered homelessness; Z71.6 Tobacco abuse counseling; Z23 Encounter for immunization; Z79.899 Other long term (current) drug therapy
CPT/HCPCS: 36415; 80053; 80178; 80307; 81001; 81003; 82565; 84443; 84520; 85025; 90656; 93005; 99285; J0401; S9485

== ENCOUNTER → 2023-11-29 12:35 | Outpatient (BNV) | payer BC, SELFPAY | PROVIDERS: Admitting Provider Psychiatry & Neurology Psychiatry; Emergency Provider Emergency Medicine Emergency Medical Services; Visit Provider Psychiatry & Neurology Psychiatry | DX: F25.0 Schizoaffective disorder, bipolar type (principal); F43.11 Post-traumatic stress disorder, acute | CPT/HCPCS: 90792; 99231; 99232; 99238 ==

== ENCOUNTER 2023-12-14 08:45 | Outpatient (RCR) | payer BC, SELFPAY ==
[2023-12-14 11:52] VITALS: BMI 37.8
[2023-12-14 11:54] VITALS: BP 124/88; PULSE 76; TEMP 37
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
--- NOTE | 2023-12-15 12:15 | HO.PHP ---
Giovani was contacted by phone today at roughly 9:30 am when pt did not show up to [facility] for programming this morning. Pt answered and stated he did not want to continue at [facility], stated it was not what I anticipated and feels he does not need this level of care. Giovani reported he has experienced an improvement in symptoms since discharging from inpatient and currently denied SI, denied harmful behaviors, and denied negative symptoms. Pt was encouraged to try out the program a little longer but pt declined, pt however was open to returning in the future should he feel an increase in negative symptoms. Giovani is opting to discharge AMA, after completing 1 day. Giovani informed song writer he has a followup appt with a new Med Provider through [facility] scheduled for 12/28/23 and reports he has a new therapist also through [facility], stating he did the intake last week and is scheduled to begin in 2 weeks. Pt scored a 2 on his PHQ-9 at intake. No safety concerns.
== END 2023-12-14 23:59 | disposition home or self-care (01) ==
LOC: HO.PHPA 08:45
PROVIDERS: Visit Provider Psychiatry & Neurology Psychiatry
DX: F25.0 Schizoaffective disorder, bipolar type (principal); Z79.899 Other long term (current) drug therapy
CPT/HCPCS: 90791; 90853

== ENCOUNTER → 2023-12-14 08:45 | Outpatient (BNV) | payer BC, SELFPAY | PROVIDERS: Visit Provider Psychiatry & Neurology Psychiatry | DX: F25.0 Schizoaffective disorder, bipolar type (principal) | CPT/HCPCS: 90792 ==

== ENCOUNTER 2024-04-15 03:45 | Inpatient (IN) | payer BC, SELFPAY ==
[2024-04-15] VITALS (10 sets, daily range): BP systolic 96–136; BP diastolic 52–94; PULSE 66–105; RESP 12–18; TEMP 36.3–36.7; O2SAT 94–100; BMI 35.8
--- NOTE | 2024-04-15 | ECG_ITS ---
Test Reason : overdose Blood Pressure : */* mmHG Vent. Rate : 86 BPM Atrial Rate : 86 BPM P-R Int : 144 ms QRS Dur : 88 ms QT Int : 324 ms P-R-T Axes : -2 72 58 degrees QTcB Int : 387 ms Normal sinus rhythm Nonspecific ST and T wave abnormality Abnormal ECG When compared with ECG of 29-Nov-2023 12:25, Nonspecific T wave abnormality now evident in Lateral leads Referred By: Generic ED Physician Electronically Signed By: Fortino Coates
--- NOTE | 2024-04-15 04:51 | ED_ITS ---
HPI - Overdose General Chief Complaint: Overdose Stated Complaint: Took (30-5) 5mg of Hadol bipolar schizo w/manic ep Time Seen by Provider: 04/15/24 04:42 Source: patient and EMS Limitations: no limitations History of Present Illness ED Provider: HPI Narrative: Patient's history of schizoaffective disorder bipolar type PTSD on Haldol 5 mg daily as needed apparently took about 5-6 tablets of 5 mg Haldol for approximately at 02:00 per patient he took about 5 or 6 but patient's father says more than 30 patient's got medication filled on 12/13/23, 45 tablets in the bottle was empty not sure how many pills were left in the bottle patient a will able to answer the questions but falling sleep denies any SI or HI at this time calm and cooperative patient's report to the parents that he took 5 tablets nobody witnessed that how may tablets he took patient was calm and cooperative on arrival but sleepy Related Data Previous Rx's ?Medication ?Instructions ?Recorded aripiprazole 400 mg intramuscular 400 mg IM Q28D 28 days #1 ea 12/09/23 suspension,extended release (Abilify Maintena) cetirizine 10 mg tablet 10 mg PO DAILY 30 days #30 tabs 12/09/23 chlorpromazine 50 mg tablet See Rx Instructions .Route 12/09/23 .COMPLEX #90 tabs haloperidol 5 mg tablet 5 mg PO BID PRN mod-severe 12/09/23 agitation 30 days #45 tabs haloperidol 5 mg tablet 5 mg PO DAILY 30 days #30 tabs 12/09/23 hydroxyzine HCl 50 mg tablet 50 mg PO Q6H PRN mild Anxiety 30 12/09/23 days #60 tabs lithium carbonate 300 mg 300 mg PO BEDTIME 30 days #30 tabs 12/09/23 tablet,extended release lithium carbonate 600 mg capsule 1,200 mg (2 x 600 mg) PO BEDTIME 12/09/23 30 days #60 caps nicotine 21 mg/24 hr daily 21 mg transdermal DAILY PRN 12/09/23 transdermal patch smoking cessation 28 days #28 ea trazodone 50 mg tablet 50 mg PO BEDTIME MRX1 PRN Insomnia 12/09/23 30 days #45 tabs Allergies Allergy/AdvReac Type Severity Reaction Status Date / Time amoxicillin Allergy Hives Verified 04/15/24 04:26 Review of Systems 2 Review of Systems: Yes all other systems are reviewed and are negative [facility] Past Medical History Medical History Schizoaffective disorder, bipolar type PTSD (post-traumatic stress disorder) Bipolar 1 disorder Social History Social History Household Members: Family Housing: Homeless Housing Other:: pt unable to return home per crisis eval Do you presently have visiting nurse or other home services: No Unable to assess alcohol history related to: Refusing to respond Alcohol intake: current Alcohol intake frequency: does not drink Patient Tobacco Use Status: Current everyday Tobacco user Tobacco use type: Cigarette Cigarette Packs Per Day: 1 Cigarettes Per Day: 10 Smoked in Last 30 Days: No Second Hand Smoke Exposure: No (to be done by respiratory) Use of substances other than those prescribed or required for medical reasons: Yes Substance Use Type: Marijuana Advance Directives: No Advance Directives Information Provided: Yes service: No Sexual orientation: Unable to collect Physical Exam 2 Vital Signs: Vital Signs: Last Vital Signs Temp 97.6 F 04/15/24 06:00 Pulse 68 04/15/24 06:39 Resp 14 04/15/24 06:39 BP 105/66 04/15/24 06:39 Pulse Ox 99 04/15/24 06:39 O2 Del Method Room Air 04/15/24 06:39 BMI result Body Mass Index 35.8 Appearance: Lethargic easily arousable No acute distress. Eyes: PERRLA, No Nystagmus ENT: Pharynx normal. Oral Mucosa moist Neck: Normal inspection. Neck supple. CVS: Normal heart rate and rhythm. Pulses normal. Respiratory: No respiratory distress. Equal air entry bilateral, no wheezing/rales/rhonchi Abdomen: Soft and nontender. Bowel sounds are present, no mass palpable, no CVA tenderness Skin: Skin warm and dry. Normal skin color. Normal skin turgor. Extremities: No lower extremity edema. No calf tenderness psych; denies any SI or HI or suicidal attempt unable to say why took the pills Neuro: Oriented X 3. No motor deficit. No sensory deficit.No cerebellar signs , cranial nerves II-XII intact Medications Administered Discontinued Medications Generic Name Dose Route Start Last Admin Trade Name Freq PRN Reason Stop Dose Admin Sodium Chloride 1,000 mls @ 999 mls/hr 04/15/24 04:52 04/15/24 06:34 Ns IV 04/15/24 05:52 Infused .Q1H1M ONE Infusion Medical Decision Making Medical Decision Making [facility] Narrative: Patient's overdose on Haldol tablets vitals are stable EKG without any QT prolongation will watch supportive treatment look for sedation case discussed with poison control care team after patient became more awake Differential Diagnosis Differential Diagnoses: The differential diagnosis associated with the presentation includes Lab Data [facility] Lab Attestation statement: I reviewed the patient's lab results. 04/15/24 04:51 04/15/24 04:51 Labs: Lab Results 04/15/24 04/15/24 Range/Units 04:51 05:02 WBC 8.4 (4.8-10.8) X10*3/uL RBC 5.37 (4.60-5.80) X10*6/uL Hgb 16.5 (14.0-18.0) g/dl Hct 47.1 (42.0-52.0) % MCV 87.7 (80.0-98.0) fL MCH 30.7 (27.0-33.0) pg MCHC 35.0 (31.0-36.0) g/dl RDW 13.5 (11.0-16.0) % Plt Count 237 (160-400) X10*3/uL MPV 9.1 L (9.4-12.4) fL Immature Gran % (Auto) 0.1 (0.0-0.4) % Neut % (Auto) 71.7 (45-73) % Lymph % (Auto) 17.3 L (20-40) % [place] % (Auto) 7.8 (2-11) % Eos % (Auto) 2.6 (0-4) % Baso % (Auto) 0.5 (0-2) % Lymph # (Auto) 1.5 (1.2-4.9) X10*3/uL [place] # (Auto) 0.7 (0.1-1.2) X10*3/uL Eos # (Auto) 0.2 (0.0-0.4) X10*3/uL Baso # (Auto) 0.0 (0.0-0.2) X10*3/uL Abs Immat Gran (auto) 0.01 (0.00-0.03) X10*3/uL Absolute Neuts (auto) 6.0 (2.0-8.3) x10*3/uL Absolute Nucleated RBC 0.000 (0.0-0.012) X10*3/uL Nucleated RBC % (auto) 0.0 (0.0-0.2) /100WBC Sodium 142 (135-145) mmol/L Potassium 3.5 (3.3-5.1) mmol/L Chloride 108 (96-108) mmol/L Carbon Dioxide 24 (22-29) mmol/L Anion Gap 14 (12-20) BUN 11 (9-16) mg/dL Creatinine 0.80 (0.5-1.4) mg/dL Estim Creat Clear Calc 195.2 Estimated GFR > 60 Random Glucose 97 (60-115) mg/dL Calcium 9.4 (8.4-10.2) mg/dL Magnesium 2.2 (1.6-2.6) mg/dL Total Bilirubin 0.4 (0.0-1.0) mg/dL AST 35 (5-37) U/L ALT 96 H (0-40) U/L Alkaline Phosphatase 80 (39-117) U/L Ammonia 51 (13-55) umol/L Total Protein 7.2 (6.5-8.0) g/dL Albumin 4.3 (3.5-5.0) g/dL Salicylates < 5.0 L (15-30) mg/dL Acetaminophen < 3 (<30) mcg/mL [place] 0.69 (0.60-1.20) mmol/L Ethyl Alcohol < 10 mg/dL Independent Interpretation I performed an independent interpretation of an: EKG Interpretation: Normal sinus rhythm heart rate 86 beats per minute normal interval QTC is 387 repeat EKG showed QTC of 423 millisecond no acute ischemia Critical Care Time Critical Care Time Critical Care Time: Yes Total Critical Care Time: 55 Attestation: The patient was critically ill with a high probability of imminent or life threatening deterioration. I spent greater than 60???minutes of discontinuous time evaluating the patient,delivering critical care at the bedside, discussing and evaluating pertinent data with consultants. Critical care time does not include time spent performing separately billable procedures or teaching. Total time spent performing critical care was ?55??minutes. Discharge Plan Discharge Clinical Impression: PTSD (post-traumatic stress disorder), Schizoaffective disorder, bipolar type, Drug overdose Patient Disposition: Still a Patient Prescriptions: No Action nicotine 21 mg/24 hr Patch 24 Hour 21 mg transdermal DAILY PRN (Reason: smoking cessation) 28 Days Qty: 28 1RF haloperidol 5 mg Tablet 5 mg PO DAILY 30 Days Qty: 30 0RF Patient Comments: Patient stated he takes this at HS. haloperidol 5 mg Tablet 5 mg PO BID PRN (Reason: mod-severe agitation) 30 Days Qty: 45 1RF trazodone 50 mg Tablet 50 mg PO BEDTIME MRX1 PRN (Reason: Insomnia) 30 Days Qty: 45 1RF cetirizine 10 mg tablet 10 mg PO DAILY 30 Days Qty: 30 1RF lithium carbonate 300 mg tablet extended release 300 mg PO BEDTIME 30 Days Qty: 30 1RF hydroxyzine HCl 50 mg Tablet 50 mg PO Q6H PRN (Reason: mild Anxiety) 30 Days Qty: 60 1RF lithium carbonate 600 mg capsule 1,200 mg PO BEDTIME 30 Days Qty: 60 1RF Rx Instructions: take with 300mg capsule chlorpromazine 50 mg tablet See Rx Instructions .ROUTE .COMPLEX Qty: 90 1RF Rx Instructions: take 1-2 tabs, BID for anxiety/agitation/insomnia Abilify Maintena 400 mg suspension,extended rel recon 400 mg IM Q28D 28 Days Qty: 1 1RF Rx Instructions: Due on 12/28/23 Administer at Pharmacy Print Language: Occitan
[2024-04-15 04:57] LABS: Basophils Percent Auto 0.5 % (0-2); Eosinophils Absolute Auto 0.2 X10*3/uL (0.0-0.4); Eosinophils Percent Auto 2.6 % (0-4); Hematocrit 47.1 % (42.0-52.0); Hemoglobin 16.5 g/dl (14.0-18.0); Imm Gran Abs Auto 0.01 X10*3/uL (0.00-0.03); Imm Gran Pct Auto 0.1 % (0.0-0.4); Lymphocytes Absolute Auto 1.5 X10*3/uL (1.2-4.9); Lymphocytes Percent Auto 17.3 % (20-40); MANUAL DIFF FLAG NO; Mean Corpuscular Hemoglobin 30.7 pg (27.0-33.0); Mean Corpuscular Volume 87.7 fL (80.0-98.0); Mean Platelet Volume 9.1 fL (9.4-12.4); Monocytes Absolute Auto 0.7 X10*3/uL (0.1-1.2); Monocytes Percent Auto 7.8 % (2-11); Neutrophils Percent Auto 71.7 % (45-73); Platelet Count 237 X10*3/uL (160-400); Red Blood Count 5.37 X10*6/uL (4.60-5.80); Red Cell Distribution Width 13.5 % (11.0-16.0); White Blood Count 8.4 X10*3/uL (4.8-10.8)
[2024-04-15 05:10] LABS: Lithium 0.69 mmol/L (0.60-1.20)
[2024-04-15 05:13] LABS: Ammonia 51 umol/L (13-55)
--- NOTE | 2024-04-15 05:18 | PC.NURSE ---
Addendum entered by Cinthia Jett RN 04/15/24 06:31: Pts BP noted 96/67, RN made MD aware, no new orders at this time Original Note: Spoke with poison control, recommended EKG Q2hrs x3 and watch for QTC prolongation and monitor vital signs. Also recommended if pt becomes dystonic administer benzos.
[2024-04-15 05:21] LABS: Alanine Aminotransferase 96 U/L (0-40); Albumin Level 4.3 g/dL (3.5-5.0); Alkaline Phosphatase 80 U/L (39-117); Anion Gap 14 (12-20); Aspartate Amino Transferase 35 U/L (5-37); Bilirubin Total 0.4 mg/dL (0.0-1.0); Blood Urea Nitrogen 11 mg/dL (9-16); Calcium 9.4 mg/dL (8.4-10.2); Carbon Dioxide 24 mmol/L (22-29); Chloride 108 mmol/L (96-108); Creatinine Clr Calc Pharmacy 195.2; Estimated Glomerular Filt Rate > 60; Ethanol < 10 mg/dL; Glucose Random 97 mg/dL (60-115); Potassium 3.5 mmol/L (3.3-5.1); Sodium 142 mmol/L (135-145); Total Protein 7.2 g/dL (6.5-8.0)
[2024-04-15 05:25] LABS: Acetaminophen LAB < 3 mcg/mL (<30); Salicylate < 5.0 mg/dL (15-30)
[2024-04-15] MEDS: 0.9 % Sodium Chloride 1,000 ML 999 ML IV (05:30)
[2024-04-15 05:35] LABS: Magnesium 2.2 mg/dL (1.6-2.6)
--- NOTE | 2024-04-15 06:50 | ECG_ITS ---
Test Reason : overdose Blood Pressure : */* mmHG Vent. Rate : 63 BPM Atrial Rate : 63 BPM P-R Int : 172 ms QRS Dur : 92 ms QT Int : 414 ms P-R-T Axes : 0 67 105 degrees QTcB Int : 423 ms Normal sinus rhythm Nonspecific T wave abnormality Abnormal ECG When compared with ECG of 15-Apr-2024 04:38, No significant change was found Referred By: Syed Saldaña Electronically Signed By: Fortino Coates
--- NOTE | 2024-04-15 08:30 | PC.NURSE ---
Assumed care of pt at 0700. Pt resting in bed quietly with eyes closed, respirations even and unlabored, no increased wob/sob noted. NSR on necktie turner, HR- 60s. Per poison control, repeat EKGs q 2hr Pt maintaining own airway. 1:1 sitter at bedside, vitals updated. Call valero within reach, all needs met at this time.
--- NOTE | 2024-04-15 08:50 | ECG_ITS ---
Test Reason : overdose Blood Pressure : */* mmHG Vent. Rate : 70 BPM Atrial Rate : 70 BPM P-R Int : 156 ms QRS Dur : 86 ms QT Int : 404 ms P-R-T Axes : 0 80 83 degrees QTcB Int : 436 ms Normal sinus rhythm Nonspecific ST and T wave abnormality Abnormal ECG When compared with ECG of 15-Apr-2024 06:50, No significant change was found Referred By: Syed Saldaña Electronically Signed By: Fortino Coates
--- NOTE | 2024-04-15 10:50 | ECG_ITS ---
Test Reason : overdose Blood Pressure : */* mmHG Vent. Rate : 73 BPM Atrial Rate : 73 BPM P-R Int : 144 ms QRS Dur : 88 ms QT Int : 402 ms P-R-T Axes : 4 66 67 degrees QTcB Int : 442 ms Normal sinus rhythm with sinus arrhythmia Nonspecific ST and T wave abnormality Abnormal ECG When compared with ECG of 15-Apr-2024 09:02, No significant change was found Referred By: Syed Saldaña Electronically Signed By: Fortino Coates
[2024-04-15 13:10] LABS: Amphetamine Screen Urine Not Detected (Not Detect); Barbiturates, Urine Not Detected (Not Detect); Benzodiazepines Screen Urine Not Detected (Not Detect); Buprenorphine Scr Not Detected (Not Detect); Cannabinoid Screen Urine POSITIVE (Not Detect); Cocaine Screen Urine Not Detected (Not Detect); Fentanyl, urine POSITIVE (Not Detect); Methadone Screen, Urine Not Detected (Not Detect); Opiate Screen Urine Not Detected (Not Detect); Oxycodone Screen Urine Not Detected (Not Detect); Phencyclidine Screen Urine Not Detected (Not Detect)
[2024-04-15 13:21] LABS: Alanine Aminotransferase 83 U/L (0-40); Albumin Level 3.9 g/dL (3.5-5.0); Alkaline Phosphatase 74 U/L (39-117); Aspartate Amino Transferase 28 U/L (5-37); Bilirubin Direct 0.1 mg/dL (0.0-0.5); Bilirubin Total 0.4 mg/dL (0.0-1.0); Total Protein 6.4 g/dL (6.5-8.0)
--- NOTE | 2024-04-15 14:14 | PC.NURSE ---
assumed care of patient at aprox 1400, patient came over from main ED, ambulatory, steady gait. patient is calm and cooperative, labile affect. patient has prescription glasses on that are tinted. requested rebecca anamaria and lunch tray. patient ate lunch and drank rebecca anamaria. patient is changed over into appropriate hospital attire.
--- NOTE | 2024-04-15 17:38 | PC.NURSE ---
med rec completed with patient
--- NOTE | 2024-04-15 19:13 | PHA.MEDREC ---
Addendum entered by Justin Lala [facility] 04/15/24 19:28: Per patient, he takes 3 of the lithium 600 mg capsules at night (to equal 1800 mg) and that matches with the pharmacy claim of lithium carb 600 mg capsules (immediate release). Original Note: Pharmacy Consult ? Medication Reconciliation Pharmacy has completed the medication reconciliation. Spoke to patient (called [facility] and spoke to him via phone) to confirm medication list. Per patient, he takes lithium 1800 mg at bedtime, chlorpromazine 50 mg daily, haloperidol 5 mg prn, hydroxyzine 50 mg prn. He said he doesn't take trazodone or cetirizine. He doesn't know his last dose of medications but he thinks his las dose of Abimaliha Maincarmena was on 04/04/24.
[2024-04-15] MEDS: chlorproMAZINE HCl 25 MG TABLET 50 MG PO (20:00)
[2024-04-15] MEDS: Lithium Carbonate 300 MG TABLET 1800 MG PO (20:00)
--- NOTE | 2024-04-15 23:33 | PC.NURSE ---
this rn assumed care of pt @ 2300 pt on 1:1 sleeping rise and fall of chest notes RR 16
[2024-04-16 06:18] VITALS: BP 157/84; PULSE 102; RESP 18; TEMP 36.9; O2SAT 99
--- NOTE | 2024-04-16 07:09 | PC.NURSE ---
Care of Pt assumed at change of shift. Pt is currently resting comfortably on bed with eyes closed.
[2024-04-16] MEDS: chlorproMAZINE HCl 25 MG TABLET 50 MG PO (09:44)
--- NOTE | 2024-04-16 10:15 | PC.NURSE ---
Call received from Pt father looking for an update. Verbal permission received from Pt to speak with father. Father given brief update on status. Father reports he will be in later today to visit with Pt.
--- NOTE | 2024-04-16 14:18 | PC.NURSE ---
Father comes to unit to visit with Pt. Visit lasted approx 10-15 minutes. Upon leaving Father requests to have Care Team call him tomorrow with an update. Fathers contact information in the computer confirmed.
[2024-04-16] MEDS: Lithium Carbonate 300 MG TABLET 1800 MG PO (20:29)
[2024-04-16 20:38] VITALS: BP 137/83; PULSE 86; RESP 16; TEMP 36.6; O2SAT 97
--- NOTE | 2024-04-16 23:15 | PC.NURSE ---
patient appears to remain at rest respirations are even and unlabored patient appears in no distress
[2024-04-17 08:03] VITALS: BP 143/82; PULSE 87; RESP 16; TEMP 36.3; O2SAT 100
[2024-04-17 09:32] LABS: Appearance Urine Clear; Color Urine Yellow; Glucose Urine UA Negative (Negative); Leukocyte Esterase Urine Negative (Negative); Nitrite Urine Negative (Negative); Specific Gravity - Urine <= 1.005 (1.005-1.025); Urine Blood Negative (Negative); Urine Ketones Negative (Negative); Urine Protein Negative (Neg-Trace)
[2024-04-17] MEDS: chlorproMAZINE HCl 25 MG TABLET 50 MG PO (09:32)
--- NOTE | 2024-04-17 11:47 | PC.NURSE ---
Pt ambulatory to the BR with a steady gait. Denies complaints or needs. Calm/cooperative with care.
--- NOTE | 2024-04-17 14:40 | PC.NURSE ---
Report given to RN on M3.
--- NOTE | 2024-04-17 14:49 | PC.NURSE ---
Mother Nesha updated that pt has bed on M3 and will be transferred upstairs soon.
[2024-04-17 15:55] VITALS: BP 133/80; PULSE 115; RESP 16; TEMP 36.8; O2SAT 96
[2024-04-17 16:10] VITALS: BMI 36.2
--- NOTE | 2024-04-17 17:24 | PC.ADMIT ---
Giovani was admitted to from [facility] on 04/17/24 at 15:48 on a 12a for the treatment of SI. He signed a CV upon arrival and contraband/skin check was completed by staff. He denies current suicidal and homicidal thoughts and intent. He states that the overdose of haldol he took was not a suicide attempt. He stated my dad kept being like, 'take your meds, take your meds, take your meds', so I was like 'fine' and then took the whole thing . He was pleasant and cooperative with admission process. He denies having any medical problems. He denies auditory and visual hallucinations. He was guarded during admission interview. His thought process is linear and reports his mood is fine . He denies issues with sleep/appetite. He stated his goal for admission is to establish providers. He signed a 3 day notice. He was placed on 15 minute checks for safety.
[2024-04-17 17:28] LABS: Alanine Aminotransferase 93 U/L (0-40); Albumin Level 4.6 g/dL (3.5-5.0); Alkaline Phosphatase 88 U/L (39-117); Anion Gap 11 (12-20); Aspartate Amino Transferase 33 U/L (5-37); Bilirubin Total 0.3 mg/dL (0.0-1.0); Blood Urea Nitrogen 11 mg/dL (9-16); Calcium 9.9 mg/dL (8.4-10.2); Carbon Dioxide 25 mmol/L (22-29); Chloride 110 mmol/L (96-108); Creatinine Clr Calc Pharmacy 158.6; Estimated Glomerular Filt Rate > 60; Glucose Random 71 mg/dL (60-115); Potassium 3.8 mmol/L (3.3-5.1); Sodium 142 mmol/L (135-145); Total Protein 7.9 g/dL (6.5-8.0)
[2024-04-17 19:30] VITALS: BP 125/72; PULSE 115; RESP 18; TEMP 36.8; O2SAT 97
[2024-04-17] MEDS: Lithium Carbonate 300 MG TABLET 1800 MG PO (22:16)
[2024-04-18 07:35] VITALS: BP 150/93; PULSE 94; RESP 18; TEMP 36.7; O2SAT 98
[2024-04-18] MEDS: chlorproMAZINE HCl 25 MG TABLET 50 MG PO (08:58)
--- NOTE | 2024-04-18 10:25 | P.HPPS_ITS ---
[facility] Date of Service: 04/18/24 Chief Complaint: Crisis Sources of Information: patient interviewed, chart reviewed and crisis/core team assessment reviewed HPI Subjective Notes: [place]ckenzie Warning and Conditional Voluntary Narrative: Patient is a 23-year-old male with history of schizoaffective disorder who presented to ER due to a suspected overdose of Haldol secondary to argument with his father. Per crisis report, patient came in to be evaluated for a suspected overdose of Haldol 5 mg tablets with the father reporting that patient ingested 30 tablets. Patient was previously inpatient at [facility] in November 2023. History of increased irritability and physical aggression. Patient's father reports, patient has been under increased stress since starting online classes a few weeks ago. Patient has been having difficulty sleeping for the past few days it has not been adhering to medication regimen. History of multiple inpatient psychiatric hospitalizations. No reported substance use history other than marijuana. However U tox was positive for marijuana and fentanyl. During admission assessment, patient presents alert and oriented x3. Calm and cooperative but guarded. Patient reports feeling fine ; patient stated, I got frustrated at the situation and made a rash decision. My father kept telling me to take the Haldol, so I decided to take all of them. I didn't think of the aftermath . Patient reports this was not a suicide attempt but an impulsive decision due to being frustrated with his father. Patient denies SI/HI/VH/AH. He reports being medication compliant. Denies substance use other than marijuana. Denies history of SA/SIB. Past Psychiatric History: History of multiple inpatient psychiatric hospitalizations. Denies history of SA/SIB Medical Evaluation Reviewed: Yes [facility] Medical History Schizoaffective disorder, bipolar type PTSD (post-traumatic stress disorder) Bipolar 1 disorder Family History: Bipolar Disorder in maternal grandmother, maternal uncle no known suicides in family Social History: Grew up [place] with mother, father, younger brother who is 15 yo, attending private [employer] student at [employer], completed first semester of college Currently on medical leave from college due to hospitalizations, moved back home with mom, brother Father is reported to be a surgeon working in [employer] and not home often. [facility] reports that a [facility] application was started at [place]. Substance History: U tox positive for marijuana and fentanyl. Trauma History: Patient denied any history of physical, sexual, emotional abuse, neglect or traumatic events or losses in his life (however per previous reports, there is a trauma hx but was undisclosed) Diagnostics Vital Signs (24Hr): Vital Signs - 24 hr 04/17/24 15:55 04/17/24 19:30 04/18/24 07:35 Temperature 98.2 F 98.3 F 98.1 F Pulse Rate 115 H 115 H 94 Respiratory Rate 16 18 18 Blood Pressure 133/80 125/72 150/93 H Pulse Oximetry 96 97 98 Oxygen Delivery Method Room Air Room Air Room Air BMI result Body Mass Index 36.2 Labs 04/15/24 04:51 04/17/24 17:04 Labs: Laboratory Results - last 48 hr 04/17/24 04/17/24 09:03 17:04 Sodium 142 Potassium 3.8 Chloride 110 H Carbon Dioxide 25 Anion Gap 11 L BUN 11 Creatinine 0.99 Estim Creat Clear Calc 158.6 Estimated GFR > 60 Random Glucose 71 Calcium 9.9 Total Bilirubin 0.3 AST 33 ALT 93 H Alkaline Phosphatase 88 Total Protein 7.9 Albumin 4.6 Urine Color Yellow Urine Appearance Clear Urine pH 8.0 Ur Specific [place] <= 1.005 Urine Protein Negative Urine Glucose (UA) Negative Urine Ketones Negative Urine Blood Negative Urine Nitrite Negative Ur Leukocyte Esterase Negative Meds/Allergies Meds Home Medications ?Medication ?Instructions ?Recorded ?Confirmed ?Type chlorpromazine 50 mg tablet 50 mg PO DAILY 04/15/24 04/15/24 History lithium carbonate 600 mg capsule 1,800 mg PO BEDTIME 04/15/24 04/15/24 History Allergies Allergies Allergy/AdvReac Type Severity Reaction Status Date / Time amoxicillin Allergy Hives Verified 04/15/24 04:26 Mental Status Exam Mental Status Exam Narrative: Pt is alert and oriented; behavior is cooperative,calm, guarded; dressed in casual attire; mood is described as fine ; eye contact appropriate; Speech is normal rate, volume and not pressured; thought process is organized; Thought content is on discharge; denies SI/HI/VH/AH. Assessment & Plan Assessment & Plan (1) Schizoaffective disorder, bipolar type: Status: Acute Code(s): F25.0 - Schizoaffective disorder, bipolar type (2) PTSD (post-traumatic stress disorder): Status: Acute Code(s): F43.10 - Post-traumatic stress disorder, unspecified Plan Patient is a 23-year-old male with history of schizoaffective disorder who presented to ER due to a suspected overdose of Haldol secondary to argument with his father. Plan: CV 15 minute safety checks Continue home medication Obtain collateral Encourage groups Discharge planning Patient educated on: diagnosis and medication risk/benefits Reason for continued inpatient stay Substantial Risk for: med/psych decompensation Statement Statement: I have reviewed the history and physical and performed a pertinent examination on my patient. No changes have occurred unless specified. If the History and Physical was not performed prior to admission, the Hospitalist's service will be consulted for completing the admission physical. Time Spent With Patient Time: Total time managing care of this patient today _60___ minutes.
[2024-04-18 13:55] LABS: Cholesterol 162 mg/dL (<200); HDL Cholesterol 43 mg/dL (>40); LDL Cholesterol Calculated 103 mg/dL (<100); Triglycerides 84 mg/dL (<150)
[2024-04-18 20:40] VITALS: BP 133/78; PULSE 113; RESP 16; TEMP 36.7; O2SAT 97
[2024-04-18] MEDS: Lithium Carbonate 300 MG TABLET 1800 MG PO (22:45)
[2024-04-18] MEDS: Ondansetron ODT 8 MG TAB.RAPDIS TRANSLINGU (23:30)
[2024-04-19 03:10] VITALS: BP 129/79; PULSE 100; TEMP 37.8; O2SAT 96
[2024-04-19] MEDS: Ondansetron ODT 8 MG TAB.RAPDIS TRANSLINGU (05:40)
[2024-04-19 06:32] VITALS: TEMP 37.4
[2024-04-19 07:39] VITALS: BP 131/72; PULSE 137; RESP 16; TEMP 38.3; O2SAT 96
[2024-04-19 08:58] LABS: Lithium 0.56 mmol/L (0.60-1.20)
[2024-04-19] MEDS: chlorproMAZINE HCl 25 MG TABLET 50 MG PO (09:03)
[2024-04-19 09:08] LABS: Anion Gap 16 (12-20); Blood Urea Nitrogen 13 mg/dL (9-16); Carbon Dioxide 22 mmol/L (22-29); Chloride 106 mmol/L (96-108); Creatinine Clr Calc Pharmacy 158.6; Estimated Glomerular Filt Rate > 60; Potassium 4.1 mmol/L (3.3-5.1); Sodium 140 mmol/L (135-145)
--- NOTE | 2024-04-19 09:23 | HO.PSYCHPN ---
Subjective Subjective Date of Service: 04/19/24 Reason For Visit: Crisis Subjective Notes: 3 Day Interim History: 3 day up on 04/20/24. Pt reports feeling good emotionally but tired physically d/t vomiting last night. pt negative for FLU/RSV/Covid. Pt states he plans on following up with his outpatient providers and being medication compliant. denies SI/HI/VH/AH. [place] level 0.56 on 04/19/24. States he is looking forward to returning home; pt to be discharged on 3 day. Medication Compliance: Yes Side effects from medications: No Attending Groups: No Mental Status Exam Mental Status Exam Narrative: Pt is alert and oriented; behavior is cooperative, calm; dressed in casual attire; mood is described as good ; eye contact appropriate; Speech is normal rate, volume and not pressured; thought process is organized; Thought content is on discharge; denies SI/HI/VH/AH. Diagnostics Vital Signs (24Hr): Vital Signs - 24 hr 04/18/24 20:40 04/19/24 03:10 04/19/24 06:32 Temperature 98.1 F 100.1 F 99.3 F Pulse Rate 113 H 100 Respiratory Rate 16 Blood Pressure 133/78 129/79 Pulse Oximetry 97 96 Oxygen Delivery Method Room Air Room Air 04/19/24 07:39 Temperature 100.9 F H Pulse Rate 137 H Respiratory Rate 16 Blood Pressure 131/72 Pulse Oximetry 96 Oxygen Delivery Method Room Air BMI result Body Mass Index 36.2 Labs 04/15/24 04:51 04/19/24 08:23 Labs: Laboratory Results - last 48 hr 04/17/24 04/17/24 04/18/24 09:03 17:04 08:07 Sodium 142 Potassium 3.8 Chloride 110 H Carbon Dioxide 25 Anion Gap 11 L BUN 11 Creatinine 0.99 Estim Creat Clear Calc 158.6 Estimated GFR > 60 Random Glucose 71 Calcium 9.9 Total Bilirubin 0.3 AST 33 ALT 93 H Alkaline Phosphatase 88 Total Protein 7.9 Albumin 4.6 Triglycerides 84 Cholesterol 162 LDL Cholesterol, Calc 103 H HDL Cholesterol 43 Urine Color Yellow Urine Appearance Clear Urine pH 8.0 Ur Specific [place] <= 1.005 Urine Protein Negative Urine Glucose (UA) Negative Urine Ketones Negative Urine Blood Negative Urine Nitrite Negative Ur Leukocyte Esterase Negative [place] 04/19/24 08:23 Sodium 140 Potassium 4.1 Chloride 106 Carbon Dioxide 22 Anion Gap 16 BUN 13 Creatinine 0.99 Estim Creat Clear Calc 158.6 Estimated GFR > 60 Random Glucose Calcium Total Bilirubin AST ALT Alkaline Phosphatase Total Protein Albumin Triglycerides Cholesterol LDL Cholesterol, Calc HDL Cholesterol Urine Color Urine Appearance Urine pH Ur Specific [place] Urine Protein Urine Glucose (UA) Urine Ketones Urine Blood Urine Nitrite Ur Leukocyte Esterase [place] 0.56 L Medications Medications Current Medications Acetaminophen (Acetaminophen 325 Mg Tablet) 650 mg PO Q6H PRN PRN Reason: Headache/Pain, Scale 1-10 Al Hydroxide/Mg Hydroxide (Magnesium Hydrox/Alum Hydrox 30 Ml Oral.Susp) 30 ml PO Q6H PRN PRN Reason: Heartburn/Nausea Chlorpromazine HCl (Chlorpromazine Hcl 25 Mg Tablet) 50 mg PO DAILY [facility] Last Admin: 04/19/24 09:03 Dose: 50 mg Haloperidol (Haloperidol 5 Mg Tablet) 5 mg PO BID PRN PRN Reason: mod-severe agitation Hydroxyzine HCl (Hydroxyzine Hcl 50 Mg Tablet) 50 mg PO Q6H PRN PRN Reason: mild Anxiety [place] Carbonate ([place] Carbonate 300 Mg Tablet) 1,800 mg PO BEDTIME [facility] Last Admin: 04/18/24 22:45 Dose: 1,800 mg Magnesium Hydroxide (Milk Of Magnesia 30 Ml Oral.Susp) 30 ml PO DAILY PRN PRN Reason: Constipation Nicotine (Nicotine 21 Mg Patch.Td24) 21 mg TRANSDERMA DAILY PRN PRN Reason: smoking cessation Nicotine Polacrilex (Nicotine Polacrilex 2 Mg Gum) 4 mg BUCCAL Q2H PRN PRN Reason: Nicotine Cravings Ondansetron HCl (Ondansetron Odt 8 Mg Tab.Rapdis) 8 mg TRANSLINGU Q12H PRN PRN Reason: Nausea and Vomiting Last Admin: 04/19/24 05:40 Dose: 8 mg Trazodone HCl (Trazodone Hcl 50 Mg Tablet) 50 mg PO BEDTIME MRX1 PRN PRN Reason: Insomnia Allergies Allergies Allergy/AdvReac Type Severity Reaction Status Date / Time amoxicillin Allergy Hives Verified 04/15/24 04:26 Assessment & Plan Assessment & Plan (1) Schizoaffective disorder, bipolar type: Status: Acute Code(s): F25.0 - Schizoaffective disorder, bipolar type (2) PTSD (post-traumatic stress disorder): Status: Acute Code(s): F43.10 - Post-traumatic stress disorder, unspecified Plan Patient is a 23-year-old male with history of schizoaffective disorder who presented to ER due to a suspected overdose of Haldol secondary to argument with his father. Plan: CV 15 minute safety checks Continue home medication Obtain collateral Encourage groups Discharge planning 04/19: 3 day up on 04/20/24. Pt reports feeling good emotionally but tired physically d/t vomiting last night. pt negative for FLU/RSV/Covid. Pt states he plans on following up with his outpatient providers and being medication compliant. denies SI/HI/VH/AH. [place] level 0.56 on 04/19/24. States he is looking forward to returning home; pt to be discharged on 3 day. Patient educated on: diagnosis and medication risk/benefits Reason for continued inpatient stay Substantial Risk for: stable for discharge Time Spent With Patient Time: Total time managing care of this patient today _20___ minutes.
[2024-04-19 09:26] LABS: TSH reflex Free T4 0.34 uIU/mL (0.32-4.0)
[2024-04-19 12:36] LABS: Influenza A PCR NEGATIVE (Negative); Influenza B PCR NEGATIVE (Negative); Resp Syncy Virus RNA Qual PCR NEGATIVE (Negative); SARS COV2 PCR INHOUSE NEGATIVE (Negative)
[2024-04-19 20:00] VITALS: BP 142/67; PULSE 122; RESP 16; TEMP 37.3; O2SAT 97
[2024-04-19] MEDS: Lithium Carbonate 300 MG TABLET 1800 MG PO (20:42)
[2024-04-19] MEDS: traZODone HCL 50 MG TABLET PO (20:43)
[2024-04-19] MEDS: hydrOXYzine HCL 50 MG TABLET PO (20:43)
[2024-04-20 07:00] VITALS: BMI 36.0
[2024-04-20 07:46] VITALS: BP 117/67; PULSE 105; RESP 16; TEMP 36.8; O2SAT 96
[2024-04-20] MEDS: chlorproMAZINE HCl 25 MG TABLET 50 MG PO (08:34)
--- NOTE | 2024-04-20 10:16 | P.DS_ITS ---
DS: Providers Provider Date of Service: 04/20/24 Date of admission: 04/17/24 13:27 Date of discharge: 04/20/24 Primary care physician: Unknown Physician Admitting clinician: Cira Bennett Attending physician on admission: Santiago Rodriguez Attending physician on discharge: Santiago Rodriguez Discharging clinician: Cira Bennett DS: Diagnosis Discharge Diagnosis (1) Schizoaffective disorder, bipolar type: Status: Acute (2) PTSD (post-traumatic stress disorder): Status: Acute DS: Medications Discharge Medications Home Medications: Home Medications ?Medication ?Instructions ?Recorded ?Confirmed chlorpromazine 50 mg tablet 50 mg PO DAILY 04/15/24 04/15/24 lithium carbonate 600 mg capsule 1,800 mg PO BEDTIME 04/15/24 04/15/24 Previous Rx's ?Medication ?Instructions ?Recorded aripiprazole 400 mg intramuscular 400 mg IM Q28D 28 days #1 ea 12/09/23 suspension,extended release (Abilify Maintena) haloperidol 5 mg tablet 5 mg PO BID PRN mod-severe 12/09/23 agitation 30 days #45 tabs hydroxyzine HCl 50 mg tablet 50 mg PO Q6H PRN mild Anxiety 30 12/09/23 days #60 tabs nicotine 21 mg/24 hr daily 21 mg transdermal DAILY PRN 12/09/23 transdermal patch smoking cessation 28 days #28 ea Mental Status Exam Mental Status Exam Narrative: Pt is alert and oriented; behavior is cooperative, calm; dressed in casual at tire; mood is described as good ; eye contact appropriate; Speech is normal rate, volume and not pressured; thought process is organized; Thought content is on discharge; denies SI/HI/VH/AH. Data Data Completed and Pending Completed studies during hospitalization [Text1]: 04/15/24 04/15/24 04/15/24 04:51 05:02 12:53 WBC 8.4 RBC 5.37 Hgb 16.5 Hct 47.1 MCV 87.7 MCH 30.7 MCHC 35.0 RDW 13.5 Plt Count 237 MPV 9.1 L Immature Gran % (Auto) 0.1 Neut % (Auto) 71.7 Lymph % (Auto) 17.3 L [place] % (Auto) 7.8 Eos % (Auto) 2.6 Baso % (Auto) 0.5 Lymph # (Auto) 1.5 [place] # (Auto) 0.7 Eos # (Auto) 0.2 Baso # (Auto) 0.0 Abs Immat Gran (auto) 0.01 Absolute Neuts (auto) 6.0 Absolute Nucleated RBC 0.000 Nucleated RBC % (auto) 0.0 Sodium 142 Potassium 3.5 Chloride 108 Carbon Dioxide 24 Anion Gap 14 BUN 11 Creatinine 0.80 Estim Creat Clear Calc 195.2 Estimated GFR > 60 Random Glucose 97 Calcium 9.4 Magnesium 2.2 Total Bilirubin 0.4 0.4 Direct Bilirubin 0.1 AST 35 28 ALT 96 H 83 H Alkaline Phosphatase 80 74 Ammonia 51 Total Protein 7.2 6.4 L Albumin 4.3 3.9 Triglycerides Cholesterol LDL Cholesterol, Calc HDL Cholesterol TSH Urine Color Urine Appearance Urine pH Ur Specific [place] Urine Protein Urine Glucose (UA) Urine Ketones Urine Blood Urine Nitrite Ur Leukocyte Esterase Salicylates < 5.0 L Urine Opiates Screen Not Detected Ur Buprenorphine Scrn Not Detected Ur Oxycodone Screen Not Detected Urine Methadone Screen Not Detected Urine Fentanyl Screen POSITIVE H Acetaminophen < 3 Ur Barbiturates Screen Not Detected Ur Phencyclidine Scrn Not Detected Ur Amphetamines Screen Not Detected U Benzodiazepines Scrn Not Detected [place] 0.69 Urine Cocaine Screen Not Detected U Marijuana (THC) Screen POSITIVE H Ethyl Alcohol < 10 Influenza Type A (PCR) Influenza Type B (PCR) RSV RNA Qual (PCR) SARS-CoV-2 RNA (RT-PCR) 04/17/24 04/17/24 04/18/24 09:03 17:04 08:07 WBC RBC Hgb Hct MCV MCH MCHC RDW Plt Count MPV Immature Gran % (Auto) Neut % (Auto) Lymph % (Auto) [place] % (Auto) Eos % (Auto) Baso % (Auto) Lymph # (Auto) [place] # (Auto) Eos # (Auto) Baso # (Auto) Abs Immat Gran (auto) Absolute Neuts (auto) Absolute Nucleated RBC Nucleated RBC % (auto) Sodium 142 Potassium 3.8 Chloride 110 H Carbon Dioxide 25 Anion Gap 11 L BUN 11 Creatinine 0.99 Estim Creat Clear Calc 158.6 Estimated GFR > 60 Random Glucose 71 Calcium 9.9 Magnesium Total Bilirubin 0.3 Direct Bilirubin AST 33 ALT 93 H Alkaline Phosphatase 88 Ammonia Total Protein 7.9 Albumin 4.6 Triglycerides 84 Cholesterol 162 LDL Cholesterol, Calc 103 H HDL Cholesterol 43 TSH Urine Color Yellow Urine Appearance Clear Urine pH 8.0 Ur Specific [place] <= 1.005 Urine Protein Negative Urine Glucose (UA) Negative Urine Ketones Negative Urine Blood Negative Urine Nitrite Negative Ur Leukocyte Esterase Negative [place] Urine Opiates Screen Ur Buprenorphine Scrn Ur Oxycodone Screen Urine Methadone Screen Urine Fentanyl Screen Acetaminophen Ur Barbiturates Screen Ur Phencyclidine Scrn Ur Amphetamines Screen U Benzodiazepines Scrn [place] Urine Cocaine Screen U Marijuana (THC) Screen Ethyl Alcohol Influenza Type A (PCR) Influenza Type B (PCR) RSV RNA Qual (PCR) SARS-CoV-2 RNA (RT-PCR) 04/19/24 04/19/24 08:23 11:32 WBC RBC Hgb Hct MCV MCH MCHC RDW Plt Count MPV Immature Gran % (Auto) Neut % (Auto) Lymph % (Auto) [place] % (Auto) Eos % (Auto) Baso % (Auto) Lymph # (Auto) [place] # (Auto) Eos # (Auto) Baso # (Auto) Abs Immat Gran (auto) Absolute Neuts (auto) Absolute Nucleated RBC Nucleated RBC % (auto) Sodium 140 Potassium 4.1 Chloride 106 Carbon Dioxide 22 Anion Gap 16 BUN 13 Creatinine 0.99 Estim Creat Clear Calc 158.6 Estimated GFR > 60 Random Glucose Calcium Magnesium Total Bilirubin Direct Bilirubin AST ALT Alkaline Phosphatase [place] Total Protein Albumin Triglycerides Cholesterol LDL Cholesterol, Calc HDL Cholesterol TSH 0.34 Urine Color Urine Appearance Urine pH Ur Specific [place] Urine Protein Urine Glucose (UA) Urine Ketones Urine Blood Urine Nitrite Ur Leukocyte Esterase Salicylates Urine Opiates Screen Ur Buprenorphine Scrn Ur Oxycodone Screen Urine Methadone Screen Urine Fentanyl Screen Acetaminophen Ur Barbiturates Screen Ur Phencyclidine Scrn Ur Amphetamines Screen U Benzodiazepines Scrn [place] 0.56 L Urine Cocaine Screen U Marijuana (THC) Screen Ethyl Alcohol Influenza Type A (PCR) NEGATIVE Influenza Type B (PCR) NEGATIVE RSV RNA Qual (PCR) NEGATIVE SARS-CoV-2 RNA (RT-PCR) NEGATIVE DS: Summary Hospital Course Hospital Course: Patient is a 23-year-old male with history of schizoaffective disorder who presented to ER due to a suspected overdose of Haldol secondary to argument with his father. Per crisis report, patient came in to be evaluated for a suspected overdose of Haldol 5 mg tablets with the father reporting that patient ingested 30 tablets. Patient was previously inpatient at [facility] in November 2023. History of increased irritability and physical aggression. Patient's father reports, patient has been under increased stress since starting online classes a few weeks ago. Patient has been having difficulty sleeping for the past few days it has not been adhering to medication regimen. History of multiple inpatient psychiatric hospitalizations. No reported substance use history other than marijuana. However U tox was positive for marijuana and fentanyl. During admission assessment, patient presents alert and oriented x3. Calm and cooperative but guarded. Patient reports feeling fine ; patient stated, I got frustrated at the situation and made a rash decision. My father kept telling me to take the Haldol, so I decided to take all of them. I didn't think of the aftermath . Patient reports this was not a suicide attempt but an impulsive decision due to being frustrated with his father. Patient denies SI/HI/VH/AH. He reports being medication compliant. Denies substance use other than marijuana. Denies history of SA/SIB. Plan: CV 15 minute safety checks Continue home medication Obtain collateral Encourage groups Discharge planning 3 day up on 04/20/24. Pt reports feeling good emotionally but tired physically d/t vomiting last night. pt negative for FLU/RSV/Covid. Pt states he plans on following up with his outpatient providers and being medication compliant. denies SI/HI/VH/AH. [place] level 0.56 on 04/19/24. States he is looking forward to returning home; pt to be discharged on 3 day. Patient continues to report feeling good today; denies SI/HI/VH/AH. Pt reports he plans on being medication compliant and following up with his outpatient providers. Status at Discharge Cognitive/behavioral status at discharge: Patient has insight and demonstrates good judgment in terms of wanting to pursue treatment. Patient has a safety plan that includes presenting to the closest ER or calling 911 if feeling unsafe. Functional status at discharge: independent ambulation Overall status at discharge: patient is back to baseline Time Spent with Patient Time attestation: Total time managing care of this patient today _20___ minutes. Time spent: Less than 30 minutes Discharge Plan Discharge Anticipated Discharge Date/Time: 04/20/24 11:21 Patient Disposition: Home, Self-Care Discharge Diagnosis: Schizoaffective d/c, PTSD Referrals: [facility] [Other] - 1 Week (Follow up with provider when discharged. ) Liz Ohara ([facility]) [Other] - 04/26/24 11:00 am (in person appointment. This is your intake appointment.) Jenny Alvarez ([facility]) [Other] - 05/18/24 9:00 am (This appointment is Telehealth.) [facility] [Provider Group] - 1 Week (04-19-24 [facility] was added to patients chart. Please call [phone] to schedule your follow up appt within 7-10 days from discharge.) Discharge Medications: Continued lithium carbonate 600 mg capsule 1,800 mg PO BEDTIME haloperidol 5 mg Tablet 5 mg PO BID PRN (Reason: mod-severe agitation) 30 Days Qty: 60 0RF chlorpromazine 50 mg tablet 50 mg PO DAILY 30 Days Qty: 30 0RF nicotine 21 mg/24 hr Patch 24 Hour 21 mg transdermal DAILY PRN (Reason: smoking cessation) 28 Days Qty: 28 1RF hydroxyzine HCl 50 mg Tablet 50 mg PO Q6H PRN (Reason: mild Anxiety) 30 Days Qty: 60 1RF Abilify Maintena 400 mg suspension,extended rel recon 400 mg IM Q28D 28 Days Qty: 1 1RF Patient Comments: patient states he got 2 weeks ago Rx Instructions: Due on 12/28/23 Administer at Pharmacy Discharge Orders: Discharge Order (Routine); Ordered 04/20/24 Ordered By: Cira Bennett Diet: Regular diet Activity on Discharge: As tolerated Stand Alone Forms: Patient Portal Discharge page, Community Support Print Language: Greek Care Plan Goals: Maintain mood and safe behaviors Take medications as prescribed Practice coping skills Continue with outpatient providers and reach out to them as needed Health Concerns: Mood stability and behaviors Plan of Treatment: Follow up with your PCP, psychiatric provider and other outpatient providers regarding above concerns Take medications as prescribed Assessment: Patient has insight and demonstrates good judgment in terms of wanting to pursue treatment. Patient has a safety plan that includes presenting to the closest ER or calling 911 if feeling unsafe. Discharge Date/Time: 04/20/24 11:43
== END 2024-04-20 11:43 | disposition home or self-care (01) | DRG 750 ==
LOC: HO.ED 04-16 03:53 → HO.PADLT16 04-17 13:32
PROVIDERS: Emergency Medicine; Internal Medicine; Admitting Provider Registered Nurse; Emergency Provider Emergency Medicine; Responsible Provider Registered Nurse; Visit Provider Psychiatry & Neurology Psychiatry
DX: F25.0 Schizoaffective disorder, bipolar type (principal); F17.210 Nicotine dependence, cigarettes, uncomplicated; F43.10 Post-traumatic stress disorder, unspecified; Z71.6 Tobacco abuse counseling; T43.4X2A Poisoning by butyrophenone and thiothixene neuroleptics, intentional self-harm, initial encounter; Z20.822 Contact with and (suspected) exposure to COVID-19; Z79.899 Other long term (current) drug therapy
CPT/HCPCS: 0241U; 36415; 80051; 80053; 80061; 80076; 80143; 80178; 80179; 80307; 81003; 82140; 82565; 83735; 84443; 84520; 85025; 93005; 99285; S9485

== ENCOUNTER → 2024-04-15 04:38 | Outpatient (BNV) | payer BC, SELFPAY | PROVIDERS: Emergency Provider Emergency Medicine; Visit Provider Internal Medicine Cardiovascular Disease | DX: R94.31 Abnormal electrocardiogram [ECG] [EKG] (principal); T50.901A Poisoning by unspecified drugs, medicaments and biological substances, accidental (unintentional), initial encounter | CPT/HCPCS: 93010 ==

== ENCOUNTER → 2024-04-17 13:27 | Outpatient (BNV) | payer BC, SELFPAY | PROVIDERS: Admitting Provider Registered Nurse; Emergency Provider Emergency Medicine; Responsible Provider Registered Nurse; Visit Provider Registered Nurse | DX: F25.0 Schizoaffective disorder, bipolar type (principal); F43.10 Post-traumatic stress disorder, unspecified | CPT/HCPCS: 90792 ==